=== PATIENT | female | born 1955 | race Caucasian/White ===

== ENCOUNTER → 2016-09-16 | Outpatient (CLI) | payer BC, OTHER ==
[~2016-09-16] MED LIST: ACET-1138 PO; ASPEC81 PO; ASPI81TA28 PO; BIOT1TAB7 PO; CHOL1TAB42 PO; CLB100 PO; CLB200 PO; CYAN100020 PO; DICL1GEL28 TOP; FLUT1INH7 PO; GLC/500 PO; HYDR-5688 PO; LEVO50TA PO; METF1TAB53 PO; MULTTAB58 PO; NXM/40 PO; ONDA8TAB6 PO; PANT40TA PO; RXC5 PO; SERT100T PO; SYMIN160 INH
--- NOTE | 2016-09-16 16:11 | MAMMOGRAPHY REPORT ---
BILATERAL DIGITAL SCREENING MAMMOGRAM TOMOSYNTHESIS WITH CAD: 09/16/2016 CLINICAL HISTORY: Routine screening. Patient has no complaints. TECHNIQUE: Breast tomosynthesis in addition to standard 2D mammography was performed. Current study was also evaluated with a Computer Aided Detection (CAD) system. COMPARISON: Comparison is made to exams dated: 09/15/2015 mammogram, 09/15/2015 mammogram, 09/12/2014 m ammogram, 08/22/2013 mammogram, 08/31/2011 mammogram, and 08/27/2010 mammogram - [facility]. BREAST COMPOSITION: The tissue of both breasts is heterogeneously dense, which may obscure small ma sses. FINDINGS: No suspicious masses, calcifications, or areas of architectural distortion are noted in e ither breast. There has been no significant interval change compared to prior exams. IMPRESSION: ACR BI-RADS CATEGORY 1: NEGATIVE There is no mammographic evidence of malignancy. A 1 year screening mammogram is recommended. The p atient will receive written notification of the results. Approximately 10% of breast cancers are not detected with mammography. A negative mammographic repor t should not delay biopsy if a clinically suggestive mass is present. Sangeeta Wade M.D. /:09/16/2016 15:01:10 Health And Safety Consultant: Seble Flores, [facility] letter sent: Normal 1/2 BI-RADS Code: ACR BI-RADS Category 1: Negative
== END | disposition home or self-care (01) ==
LOC: C.MAMM 12:31
PROVIDERS: ATTEND Internal Medicine
DX: Z12.31 Encounter for screening mammogram for malignant neoplasm of breast (principal)

== ENCOUNTER → 2016-12-23 | Outpatient (CLI) | payer BC, OTHER ==
--- NOTE | 2016-12-23 11:29 | DIAGNOSTIC IMAGING REPORT ---
TWO VIEW CHEST CLINICAL HISTORY: Acute bronchitis. FINDINGS: PA and lateral chest radiographs are compared to study dated 02/23/2016. The PA view is degraded by apical lordotic positioning. The cardiomediastinal silhouette is unremarkable. There is mild atherosclerotic calcification of the thoracic aorta. The lungs and pleural spaces are clear. There is no pneumothorax. The skeletal structures are osteopenic. The bony thorax appears intact. Mild degenerative change is noted throughout the thoracic spine. IMPRESSION: No active disease in the chest. Electronically signed by: Joseph Canas M.D. 12/23/2016 11:26 AM Dictated Date/Time: 12/23/2016 11:25 AM
[2016-12-23 13:16] LABS: BASO % 0.3 %; BASO ABS # 0.02 K/uL (0-0.2); COMPLETE YES; EOS % 4.2 %; HEMATOCRIT 39.1 % (37-47); IG% 0.3 %; LYMPH % 9.8 %; LYMPH ABS # 0.68 K/uL (1.2-3.4); MEAN CELL VOLUME 87.1 fL (80-100); MEAN CORPUSCULAR HEMOGLOBIN 27.8 pg (25-34); MEAN PLATELET VOLUME 10.5 fL (7.4-10.4); MONO % 8.6 %; NEUT % 76.8 %; PLATELET COUNT 149 K/uL (130-400); RED BLOOD COUNT 4.49 M/uL (4.2-5.4); WHITE BLOOD COUNT 6.94 K/uL (4.8-10.8)
[2016-12-23 14:05] LABS: ALT/SGPT 29 U/L (12-78); AST/SGOT 22 U/L (15-37); BLOOD UREA NITROGEN 15 mg/dl (7-18); BUN/CREATININE RATIO 16.5 (10-20); CALCIUM 9.3 mg/dl (8.5-10.1); CARBON DIOXIDE 30 mmol/L (21-32); CHLORIDE 106 mmol/L (98-107); CREATININE 0.92 mg/dl (0.60-1.20); GLUCOSE 89 mg/dl (70-99); POTASSIUM 4.3 mmol/L (3.5-5.1); SODIUM 142 mmol/L (136-145)
[2016-12-23 14:08] LABS: ALB/GLOB RATIO 1.1 (0.9-2); ALKALINE PHOSPHATASE 67 U/L (45-117)
== END | disposition home or self-care (01) ==
LOC: C.RAD1850 11:12
PROVIDERS: ATTEND Physician Assistant Medical
DX: J20.9 Acute bronchitis, unspecified (principal)

== ENCOUNTER → 2017-01-03 | Outpatient (CLI) | payer BC, OTHER ==
[2017-01-03 12:13] LABS: BASO % 0.3 %; BASO ABS # 0.02 K/uL (0-0.2); COMPLETE YES; EOS % 0.9 %; HEMATOCRIT 39.9 % (37-47); LYMPH % 15.2 %; LYMPH ABS # 1.19 K/uL (1.2-3.4); MEAN CELL VOLUME 88.3 fL (80-100); MEAN CORPUSCULAR HEMOGLOBIN 28.1 pg (25-34); MEAN CORPUSCULAR HGB CONC 31.8 g/dl (32-36); MEAN PLATELET VOLUME 10.7 fL (7.4-10.4); MONO % 7.9 %; NEUT % 74.7 %; PLATELET COUNT 193 K/uL (130-400); RED BLOOD COUNT 4.52 M/uL (4.2-5.4); WHITE BLOOD COUNT 7.82 K/uL (4.8-10.8)
[2017-01-03 12:17] LABS: URINE APPEARANCE CLEAR (CLEAR); URINE BILIRUBIN NEG (NEG); URINE COLOR YELLOW; URINE EPITHELIAL CELL AUTO 0-5 /lpf (0-5); URINE NITRITE NEG (NEG); URINE SPECIFIC GRAVITY 1.018 (1.000-1.030); UROBILINOGEN NEG (NEG); ZZUR CULT IF INDIC CLEAN CATCH NO
[2017-01-03 12:23] LABS: MANUAL MICROSCOPIC REQUIRED? NO; REVIEW REQ? NO
[2017-01-03 12:28] LABS: ESTIMATED AVERAGE GLUCOSE 126 mg/dl; HA1C FLAG Normal (Normal)
[2017-01-03 12:54] LABS: ALT/SGPT 26 U/L (12-78); AST/SGOT 15 U/L (15-37); BLOOD UREA NITROGEN 23 mg/dl (7-18); BUN/CREATININE RATIO 25.4 (10-20); C-REACTIVE PROTEIN < 0.29 mg/dl (0-0.29); CARBON DIOXIDE 26 mmol/L (21-32); CHLORIDE 103 mmol/L (98-107); CHOLESTEROL 180 mg/dl (0-200); CREATININE 0.91 mg/dl (0.60-1.20); GLUCOSE 86 mg/dl (70-99); POTASSIUM 3.7 mmol/L (3.5-5.1); SODIUM 139 mmol/L (136-145); TRIGLYCERIDES 215 mg/dl (0-150); VERY LOW DENSITY LIPOPROT CALC 43 mg/dl
[2017-01-03 12:56] LABS: CALCIUM 9.5 mg/dl (8.5-10.1)
[2017-01-03 13:04] LABS: ALB/GLOB RATIO 1.2 (0.9-2); ALKALINE PHOSPHATASE 63 U/L (45-117); CHOLESTEROL/HDL RATIO 3.6; HDL CHOLESTEROL 50 mg/dl; LDL CHOLESTEROL CALCULATED 87 mg/dl
== END | disposition home or self-care (01) ==
LOC: C.LAB1850 09:54
PROVIDERS: ATTEND Internal Medicine
DX: E03.9 Hypothyroidism, unspecified (principal); E11.9 Type 2 diabetes mellitus without complications; N20.0 Calculus of kidney; Z11.59 Encounter for screening for other viral diseases; Z96.652 Presence of left artificial knee joint

== ENCOUNTER → 2017-01-19 | Outpatient (CLI) | payer BC, OTHER ==
--- NOTE | 2017-01-19 10:15 | DIAGNOSTIC IMAGING REPORT ---
CHEST 2 VIEWS ROUTINE HISTORY: Preop. COMPARISON: Chest 12/23/2016. FINDINGS: There are bibasilar linear densities suggesting subsegmental atelectasis. The lungs are otherwise clear. No pleural effusions. No pneumothorax. The heart is normal in size. IMPRESSION: Bibasilar linear densities suggesting subsegmental atelectasis. Otherwise, no acute process within the chest. Electronically signed by: Dc Alexis M.D. 01/19/2017 10:14 AM Dictated Date/Time: 01/19/2017 10:13 AM
== END | disposition home or self-care (01) ==
LOC: C.RAD1850 09:57
PROVIDERS: ATTEND Internal Medicine
DX: Z01.818 Encounter for other preprocedural examination (principal)

== ENCOUNTER 2017-02-10 09:14 | Inpatient (IN) | payer BC, OTHER ==
[2017-01-25 09:13] VITALS: BMI 36.0
--- NOTE | 2017-02-09 08:59 | HISTORY & PHYSICAL EXAMINATION ---
DATE OF ADMISSION: 02/10/2017 CHIEF COMPLAINT: Left knee pain, status post previous total knee arthroplasty. HISTORY OF PRESENT ILLNESS: The patient is a 61-year-old female approximately 4 years status post left total knee arthroplasty. Over the past year, she has noted increased pain and disability. She has been seen and evaluated. X-rays initially showed increased lucency around primarily the tibial component, but somewhat on the femoral component as well. She has had a negative infection workup including a negative sed rate and CRP. She had a bone scan, which showed increased uptake primarily around the tibial component of the involved knee, likely indicative of loosening. She is now scheduled for a left total knee revision. PAST MEDICAL HISTORY: Asthma, chronic bronchitis, type 2 diabetes, hypothyroidism, and obesity. PAST SURGICAL HISTORY: Left knee as above and right knee replacement in 2016. MEDICATIONS: Zoloft 100 mg daily, multivitamin daily, aspirin 81 mg daily, vitamin D3, Synthroid 50 mcg daily, metformin 1000 mg twice daily, celecoxib 100 mg 2 times daily, Biotin 47994 mcg daily, and Protonix 40 mg daily. ALLERGIES: INCLUDE CODEINE. SOCIAL HISTORY AND REVIEW OF SYSTEMS: Noncontributory. PHYSICAL EXAMINATION: GENERAL: Well-nourished and well-developed, obese female who appears her stated age. HEENT: Normocephalic and atraumatic. Extraocular movements intact. Oropharynx is pink and moist. NECK: Supple without adenopathy. LUNGS: Clear to auscultation bilaterally. HEART: Regular rate and rhythm. ABDOMEN: Soft, nontender, and nondistended. EXTREMITIES: The upper extremities are within normal limits. The left knee has a well-healed midline incision from her previous arthroplasty. Her range of motion is approximately 0-110 degrees. X-RAYS: X-rays were reviewed. The tibial component is in a varus alignment. There is obvious lucency about the tibial component. Question of some increased lucency about the femoral component as well. The patellar button appears stable. ASSESSMENT: Aseptic loosening left total knee arthroplasty. PLAN: The above discussed with the patient. Risks versus benefits were discussed. Consent was obtained. We will proceed with left total knee revision arthroplasty upon preoperative workup and medical clearance. The patient's primary care physician is Dr. Wakefield.
[~2017-02-10] VITALS: Ht 157.5 cm; Wt 90.0 kg
[2017-02-10] VITALS (8 sets, daily range): BP systolic 114–161; BP diastolic 72–97; PULSE 64–99; TEMP 36.3–36.8; O2SAT 92–98; Ht 157.5 cm; Wt 90.0 kg
[2017-02-10] MEDS: TRANEXAMIC ACID INJ 1,000 MG in SODIUM CHLORIDE 0.9% 100ML 100 ML IV SCH ×2 (06:30→10:25)
[~2017-02-10 09:14] MED LIST changes: -ACET-1138 PO; +ACETAMINOPHEN 500 MG TAB PO SCH; -ASPEC81 PO; +BUPIVACAINE 0.25% 30 ML VIAL ONE; +BUPIVACAINE 0.5 % 5 MG/1 ML PF 10ML VIAL ONE; +CEFAZOLIN 2000 MG/60 ML D5W 60 ML IV SCH; -CLB200 PO; +CeleBREX 200 MG CAP PO SCH; +DEXAMETHASONE 4 MG TAB PO SCH; -DICL1GEL28 TOP; +FAMOTIDINE 20 MG TAB PO SCH; +GABAPENTIN 300 MG CAP PO SCH; -HYDR-5688 PO; +LACTATED RINGER'S 1000ML 1,000 ML IV SCH; +LACTATED RINGER'S 1000ML 500 ML IV ONE; +LACTATED RINGER'S 1000ML IV SCH; -METF1TAB53 PO; +METOCLOPRAMIDE HCL 10 MG TAB PO SCH; -NXM/40 PO; -ONDA8TAB6 PO; +ROPIVACAINE 5MG/ML 30 ML 150 MG, BUPIVACAINE/EPINEPHR 0.5% MPF 30 ML, KETOROLAC TROMETH... INFIL SCH; -RXC5 PO; -SYMIN160 INH
--- NOTE | 2017-02-10 09:21 | History & Physical Bridge Note ---
H&P Re-Evaluation Bridge Note: I have examined the patient, reviewed the History & Physical and in the interval since the performance of the History & Physical I have noted the following changes of clinical significance: No changes noted
[2017-02-10] MEDS ORDERED: MIDAZOLAM HCL 1 MG/ML 2ML VIAL ONE ×2 (09:49→09:50)
[2017-02-10] MEDS ORDERED: FENTANYL CITRATE INJ 50 MCG/1 ML 2 ML VIAL ONE (09:50)
[2017-02-10] MEDS ORDERED: POVIDONE-IODINE OP SOLN 30 ML BTL ONE (10:45)
[2017-02-10] MEDS ORDERED: ORTHO JOINT ANESTHETIC ONE (10:45)
[2017-02-10] MEDS ORDERED: BACITRACIN 50000 UNIT VIAL ONE (10:46)
[2017-02-10] MEDS ORDERED: SCOPOLAMINE 1.5 MG TDSY TD ONE (11:06)
[2017-02-10] MEDS ORDERED: HYDROmorphone INJ 2 MG/ML SYR/VIAL IV PRN (11:15)
[2017-02-10] MEDS ORDERED: NURSING VERBAL MED ORDER ONE (11:15)
[2017-02-10] MEDS ORDERED: ATROPINE SULFATE 0.1 MG/ML 5ML SYR IV PRN (11:15)
[2017-02-10] MEDS ORDERED: PROMETHAZINE HCL INJ 12.5 MG in SODIUM CHLORIDE 0.9% 50ML 50 ML IV PRN (11:15)
[2017-02-10] MEDS ORDERED: KETOROLAC TROMETHAMINE 30 MG/ML VIAL IV. PRN (11:15)
[2017-02-10] MEDS ORDERED: LABETALOL HCL IV 5 MG/ML 20ML IV PRN (11:15)
[2017-02-10] MEDS ORDERED: ONDANSETRON INJ 2 MG/ML 2 ML VIAL IV PRN ×2 (11:15→14:15)
[2017-02-10] MEDS ORDERED: HYDROmorphone INJ 2 MG/ML SYR/VIAL ONE (12:10)
[2017-02-10] MEDS ORDERED: GLYCOPYRROLATE INJ 0.2 MG/ML VIAL ONE (12:37)
[2017-02-10] MEDS ORDERED: PROPOFOL IV EMULSION 10 MG/ML 20 ML VIAL IV ONE (12:37)
[2017-02-10] MEDS ORDERED: LIDOCAINE HCL 2% 2 ML VIAL (20MG/ML) ONE (12:37)
[2017-02-10] MEDS ORDERED: ROCURONIUM BROMIDE 10 MG/ML 5 ML VIAL ONE (12:37)
[2017-02-10] MEDS ORDERED: NEOSTIGMINE METHYLSULFATE 5 MG/5 ML SYR ONE (12:37)
--- NOTE | 2017-02-10 13:32 | [facility] Post Operative Brief Note ---
Immediate Operative Summary Operative Date Feb 10, 2017. Pre-Operative Diagnosis Aeseptic loosening left total knee arthroplasty Post-Operative Diagnosis Same Procedure(s) Performed Left total knee revision Surgeon Dr Orozco [employer] Surgeon(s) Sander Arechiga PA-C Estimated Blood Loss 60ML Findings Grossly loose tibia Specimens Cultures #1, #2, #3 left knee synovial fluid for gram stain, aerobic and anaerobic A. Explanted hardware left knee Disposition Recovery Room / PACU
[2017-02-10] MEDS ORDERED: MAGNESIUM HYDROXIDE SUSP 30 ML UDC PO PRN (14:15)
[2017-02-10] MEDS ORDERED: METOCLOPRAMIDE HCL INJ 5 MG/ML 2 ML VIAL IV PRN (14:15)
[2017-02-10] MEDS ORDERED: HYDROmorphone INJ 1 MG/ML SYR IV PRN (14:15)
[2017-02-10] MEDS ORDERED: ZOLPIDEM TARTRATE 5 MG TAB PO PRN (14:15)
[2017-02-10] MEDS ORDERED: ALUMINUM/MAGNESIUM/SIMETH (MAALOX MAX) 30 ML UDC PO PRN (14:15)
--- NOTE | 2017-02-10 14:30 | OPERATIVE REPORT ---
DATE OF OPERATION: 02/10/2017 PREOPERATIVE DIAGNOSIS: Aseptic loosening, left total knee. POSTOPERATIVE DIAGNOSIS: Same. PROCEDURE: Left total knee revision. SURGEON: Dr. Orozco. DATA PROCESSING SUPERVISOR: Sander Arechiga PA-C. ANESTHESIA: General. COMPLICATIONS: None. DESCRIPTION OF PROCEDURE: Following induction of adequate general anesthesia, the patient's left leg was prepped and draped in usual sterile manner. Limb was exsanguinated with an Esmarch bandage and tourniquet inflated to 325 mmHg. Previously made incision was reopened. Subcutaneous tissues were sharply dissected. Electrocautery used for hemostasis. Median parapatellar incision was made and 3 sets of cultures were taken and sent for Gram stain and C&S. Next, a complete synovectomy was carried out throughout the knee and first attention was turned to the femur which was undermined using flexible osteotomes and artist chisels. Next, an osteotome was used to remove the tibial poly and using a bone tamp and a mallet, the femoral component was disimpacted with virtually no significant bone loss. There was no evidence of infection. Next, attention was turned to the tibia. It was exposed using retractors and was grossly loose. The tibial component was removed and cement was removed from the canal. Reamings were carried up to a size 11. A size 10 tibial stem was chosen the size to be used. A cleanup cut was made and a size 3 tibial tray was used. A 6 mm offset was necessary to appropriately fit the patient's tibia. Next, attention was turned to the femur and the size 2 femoral component was chosen the size to be used. Reamings were taken up here to a size 12, which gave good endosteal contact. The flexion and extension gap was checked and decision was made to go with the two 5 mm distal augments as well as 12 straight stem. The notch was cut, the femoral trial was assembled and the knee was reduced and a size 19 tibial poly gave best reproduction of soft tissue tension and ligament balancing in flexion and extension. The patella throughout the procedure was protected and was intact. There was no patella prince or patella baja at the end of the procedure. All trials were removed. The knee was thoroughly irrigated and the final components were assembled on the back table. Three packs of cement were mixed and first the tibial component was impacted into position, then the femoral component after removal of all excess cement, trial reduction was carried out with 19 poly and was held in extension until cement hardened. Once the cement hardened, the regular tibial poly was impacted into position. The knee was irrigated, Hemovac drain was placed and the wound was thoroughly irrigated. Once again the joint mix was utilized prior to cementation for pain control and the wound was closed in layers, #1 Vicryl was used to close the extensor mechanism, subcutaneous tissue was closed using 0 Dexon, and skin was closed with warren. Sterile dressing of Silverlon was applied. The patient tolerated the procedure well. I attest to the content of the Intraoperative Record and any orders documented therein. Any exceptions are noted below. ADDENDUM: Mr. Arechiga was essential throughout all portions of the case including positioning , prepping, draping, assistant professor of biology, wound closure and dressing application. WANDY
--- NOTE | 2017-02-10 14:57 | DIAGNOSTIC IMAGING REPORT ---
TWO VIEWS LEFT KNEE CLINICAL HISTORY: Postoperative examination. FINDINGS: AP and crosstable lateral portable views of the left knee are obtained. A left knee arthroplasty is in near anatomic alignment. There are long tibial and femoral stems. There has been undersurface remodeling of the patella. No acute fracture is seen. There are expected postoperative changes around the knee including skin clips, a surgical drain, soft tissue edema, and subcutaneous gas. IMPRESSION: Expected postoperative changes status post left knee arthroplasty. No acute fracture is seen. Electronically signed by: Joseph Canas M.D. 02/10/2017 2:55 PM Dictated Date/Time: 02/10/2017 2:54 PM
--- NOTE | 2017-02-10 15:07 | Anesthesiology Progress Note ---
Anesthesia Post Op Note Date & Time Feb 10, 2017 at 15:08 Vital Signs Pain Intensity: 0 Vital Signs Past 12 Hours Date Time Temp Pulse Resp B/P (MAP) Pulse Ox O2 Delivery O2 Flow Rate FiO2 02/10/17 14:55 36.2 71 13 145/76 98 Nasal Cannula 2 02/10/17 14:26 104 16 143/92 96 Mask 5 02/10/17 14:16 36.2 88 20 155/92 96 Mask 5 02/10/17 09:31 36.8 89 20 161/97 95 Room Air Notes Mental Status: alert / awake / arousable, participated in evaluation Pt Amnestic to Procedure: Yes Nausea / Vomiting: adequately controlled Pain: adequately controlled Airway Patency, RR, SpO2: stable & adequate BP & HR: stable & adequate Hydration State: stable & adequate Anesthetic Complications: no major complications apparent
[2017-02-10] MEDS ORDERED: PHARMACY GLYCEMIC MGMT CONSULT PRN (15:13)
[2017-02-10] MEDS ORDERED: GLUCOSE 40% GEL 15 GM TUBE PO PRN (15:30)
[2017-02-10] MEDS ORDERED: GLUCAGON FOR INJ 1 MG VIAL SQ PRN (15:30)
[2017-02-10] MEDS ORDERED: DEXTROSE 50% 50 ML SYR IV PRN (15:30)
[2017-02-10] MEDS ORDERED: GLUCOSE 10 TABS/TUBE PO PRN (15:30)
--- NOTE | 2017-02-10 16:14 | Pharmacy Progress Note ---
Glycemic Control Intl Consult Date of Service Feb 10, 2017. Scope Glycemic Pharmacist consulted by 02/10/17 on Michael DUPONT for glycemic control and to write orders per [facility] inpatient glycemic control protocol Objective Weight (Kilograms): 90.00 Accuchecks BSG (last 24hrs): Test 02/10/17 09:35 02/10/17 14:25 Bedside Glucose 110 mg/dl (70-90) 137 mg/dl (70-90) Recent Pertinent Medications Outpatient Anti-diabetic Regimen: * Metformin 1 gram PO BID * A1c = 6 % 01/03/17 Risk Factors for Insulin Resistance: * Steroids: Orthomix + Dexamethasone 8 mg PO x 1 pre-op. Dexamethasone 10 mg IV x 1 dose on 02/11 am. * Recent Surgery: POD #0 L TKA revision * Diet: T2DM Assessment & Plan ASSESSMENT: * 61 yr old T2DM female admitted for L TKA revision. BSGs from this morning were within goal range. * Pt is maintained on oral antidiabetic agents as an outpatient - good outpatient control evidenced by A1c of 6% (from 01/03/17) * Will hold oral agents for admission and utilize SQ basal bolus insulin regimen which is the recommended regimen for inpatient glycemic control. * Will initiate weight based insulin dosing for insulin mireya patient and titrate based on BSG trends. * Hyperglycemia may occur due to recent surgery and administration of steroids. * ADA & AACE recommend a goal blood sugar range 140-180 mg/dl for the majority of critically ill & non-critically ill patients. However, more stringent targets may be selected in individual cases. Will utilize more stringent goal of 110-140 mg/dl based on patient age & comorbidities. Additionally, tighter glycemic control is warranted to facilitate wound/infection healing. PLAN FOR INPATIENT GLYCEMIC CONTROL: * Holding outpatient oral diabetes medications * Basal insulin with LANTUS SQ HS per scale * 8 units for BSG is less than 140 mg/dL * 15 units for BSG 140 - 180 mg/dL * 22 units for BSG greater than 180 mg/dL * Correctional Insulin with NOVOLOG per scale ACHS * Goal Range: Low 110 mg/dL - High 140 mg/dL * Correction Factor: 25 mg/dL/unit * Nutritional / Prandial insulin per carb ratio of 1 unit per 9 grams CHO consumed * Overnight checks with coverage at 00 and 04 LOOKING AHEAD FOR DISCHARGE: * Good outpatient control evidenced by A1c of 6% (01/03/17) * Patient will likely be able to resume home regimen of metformin 1 gram PO BID on discharge * Please note that the plan above was derived based on current level of insulin resistance and hospital stress. These recommendations are appropriate for inpatient admission only. Plan of care upon discharge will need to be reassessed to avoid potential outpatient hypo/hyperglycemia. Thank you.
[2017-02-10] MEDS: SODIUM CHLORIDE 0.9% 1000ML 1,000 ML IV SCH (16:23)
[2017-02-10] MEDS: CHECK SCOPOLAMINE PATCH PLACEMENT SCH ×2 (16:23→23:57)
[2017-02-10] MEDS: ACETAMINOPHEN 500 MG TAB PO SCH ×2 (16:55→20:48)
[2017-02-10] MEDS: FERROUS GLUCONATE 324 MG TAB PO SCH (18:06)
[2017-02-10] MEDS: KETOROLAC TROMETHAMINE 30 MG/ML VIAL IV. SCH ×2 (18:06→23:57)
[2017-02-10] MEDS: INSULIN ASPART 100 UNITS/ML 3 ML PEN SC SCH ×2 (18:11→20:53)
[2017-02-10] MEDS: CEFAZOLIN IV 2,000 MG in DEXTROSE 5% 50ML 50 ML IV SCH (20:20)
[2017-02-10] MEDS: DOCUSATE SODIUM 100 MG CAP PO SCH (20:46)
[2017-02-10] MEDS: ASPIRIN 81 MG ECTAB PO SCH (20:47)
[2017-02-10] MEDS: SERTRALINE HCL 100 MG TAB PO SCH (20:47)
[2017-02-10] MEDS ORDERED: LANTUS PER UNIT CHARGE SQ ONE (21:30)
[2017-02-11] MEDS: INSULIN ASPART 100 UNITS/ML 3 ML PEN SC SCH ×6 (00:04→21:12)
[2017-02-11] MEDS: SODIUM CHLORIDE 0.9% 1000ML 1,000 ML IV SCH (01:23)
[2017-02-11 03:23] VITALS: BP 134/79; PULSE 88; TEMP 36.8; O2SAT 96
[2017-02-11] MEDS: CEFAZOLIN IV 2,000 MG in DEXTROSE 5% 50ML 50 ML IV SCH (03:56)
[2017-02-11 05:36] LABS: HEMATOCRIT 33.5 % (37-47); MEAN CELL VOLUME 85.7 fL (80-100); MEAN CORPUSCULAR HEMOGLOBIN 26.9 pg (25-34); MEAN CORPUSCULAR HGB CONC 31.3 g/dl (32-36); MEAN PLATELET VOLUME 10.5 fL (7.4-10.4); PLATELET COUNT 188 K/uL (130-400); RED BLOOD COUNT 3.91 M/uL (4.2-5.4); WHITE BLOOD COUNT 14.89 K/uL (4.8-10.8)
[2017-02-11] MEDS: LEVOTHYROXINE 50 MCG TAB PO SCH (05:36)
[2017-02-11] MEDS: KETOROLAC TROMETHAMINE 30 MG/ML VIAL IV. SCH ×2 (05:36→12:32)
[2017-02-11] MEDS: HYDROCODONE/ACETAMOPHEN 5/325MG TAB PO PRN ×2 (05:42→23:27)
[2017-02-11] MEDS: ACETAMINOPHEN 500 MG TAB PO SCH ×3 (05:43→21:09)
[2017-02-11 06:19] LABS: BUN/CREATININE RATIO 19.3 (10-20); CALCIUM 8.3 mg/dl (8.5-10.1); POTASSIUM 3.7 mmol/L (3.5-5.1)
--- NOTE | 2017-02-11 07:21 | Orthopedic Progress Note ---
Orthopedic Progress Note Date of Service Feb 11, 2017. Subjective Post OP Day: 1 Reports: feeling well Objective N/V intact, dressing C/D/I (Hemovac in place), toes mobile Date Time Temp Pulse Resp B/P (MAP) Pulse Ox O2 Delivery O2 Flow Rate FiO2 02/11/17 03:23 36.8 88 16 134/79 (97) 96 Room Air 02/10/17 22:53 36.3 96 16 114/72 (86) 93 Room Air 02/10/17 19:59 36.6 99 12 150/93 (112) 94 Room Air 02/10/17 19:25 Room Air 02/10/17 18:11 36.6 84 12 148/88 (108) 92 Room Air 02/10/17 17:02 36.5 74 16 147/85 (105) 97 Nasal Cannula 1.5 02/10/17 16:35 36.5 77 16 127/78 (94) 98 Nasal Cannula 2.0 02/10/17 16:00 Nasal Cannula 2.0 02/10/17 15:58 36.5 64 16 144/86 (105) 94 Nasal Cannula 2.0 02/10/17 15:30 Nasal Cannula 2.0 02/10/17 15:30 36.5 84 16 148/83 (104) 97 Nasal Cannula 2.0 02/10/17 15:15 86 16 147/72 97 Nasal Cannula 2 02/10/17 14:55 36.2 71 13 145/76 98 Nasal Cannula 2 02/10/17 14:26 104 16 143/92 96 Mask 5 02/10/17 14:16 36.2 88 20 155/92 96 Mask 5 02/10/17 09:31 36.8 89 20 161/97 95 Room Air Laboratory Results 24 Hours: Test 02/11/17 04:45 Hematocrit 33.5 % Hemoglobin 10.5 g/dL Assessment & Plan Assessment: 61 yo female stable POD #1 s/p revision left TKA Plan: 1. Med management 2. DVT prophylaxis- ASA, SCDs 3. PT/OT 4. D/C planning- home w/ HH
--- NOTE | 2017-02-11 07:23 | Discharge Instructions ---
Discharge Instructions Date of Service Feb 11, 2017. Admission Reason for Admission: Left Knee Mechanical Loosening Of Internal Prosthe Discharge Discharge Diagnosis / Problem: Aseptic loosening left TKA Discharge Goals Goal(s): Decrease discomfort, Improve function Activity Recommendations Activity Limitations: as noted below Weightbearing Status: Left weightbearing (as tolerated) . Instructions / Follow-Up Instructions / Follow-Up ACTIVITY RECOMMENDATIONS: SELF CARE INSTRUCTIONS AFTER TOTAL KNEE REPLACEMENT A. You may need to continue a physical therapy program after discharge from the hospital. There are several options available to you. Your doctor will assist you in selecting the best one for you. 1. An out-patient facility 2 to 3 times a week for therapy or home therapy. 2. Continue working on all exercises taught to you in the hospital. Your goals should be to increase bending of your knee to 90 degrees and beyond and to fully straighten your knee. B. You may progress at your own pace from walking with a walker or crutches to a cane; then to no assistive devices. C. Make walking a part of your daily routine. Be up as much as comfortable with rest periods throughout the day. Rest with leg elevation is very important. Use the ice wrap frequently for the first 3-4 weeks. D. There are no restrictions on activities. You may ride in a car, shop, participate in seed expert and all social activities. E. Wear the long elastic stockings (JOSE hose) 20 hours a day for 2 weeks after surgery. They can be removed several times a day for laundering and for a bath. F. You may shower, no tub baths until cleared by your doctor. SPECIAL CARE INSTRUCTIONS: VERY IMPORTANT TO READ AND REVIEW A. There are a few signs you need to watch for after you are home. Call [facility] [place] if you notice any of the followin. Increased severe knee pain. Some pain is expected especially when you exercise. 2. Increased swelling in your leg or knee; pain or swelling of the calf muscle in either lower leg. 3. Any fluid drainage from the incision. 4. Shortness of breath or chest pain. B. Please call [facility] at if you have any concerns or questions about your operation or recovery. The doctor or his nurse will return your call promptly. C. You must take antibiotics before dental work, bladder, bowel or other surgery. Your doctor will provide you with a permanent care to carry describing this precaution. IMPORTANT: * REMEMBER TO TAKE ASPIRIN, 81 MG, TWICE DAILY FOR 4 WEEKS UNLESS OTHERWISE DIRECTED. THIS IS YOUR BLOOD THINNER. * HIGH RISK PATIENTS MAY BE PRESCRIBED A STRONGER BLOOD THINNER. THIS WILL BE PROVIDED AT DISCHARGE. * CALL IF INCREASED PAIN, REDNESS, DRAINAGE OR FEVER GREATER THAT 101. * WEAR JOSE HOSE 20 HOURS PER DAY FOR 2 WEEKS. Silverlon- This is a large adhesive bandage that contains silver ions. This helps your incision heal by fighting off bacteria and protecting it from the outside environment. You are permitted to shower with this dressing. This will remain on your incision for 7 days and then should be removed. Some visible blood or drainage through the dressing window is normal. If there is significant drainage or leaking noted before the 7 days notify your doctor's office immediately. Once removed, keep incision clean and dry. If there is any drainage or redness noted, please call your surgeon. FOLLOW UP VISIT: If appointment is not already scheduled: Please call [facility] [place] to make a follow-up appointment for 2 weeks after your surgery at . Current Hospital Diet Patient's current hospital diet: Diabetes Type 2 Diet Discharge Diet Recommended Diet: Diabetes Type 2 Diet Procedures Procedures Performed: Left total knee revision Pending Studies Studies pending at discharge: no Laboratory Results Hemoglobin A1c Test 01/03/17 10:00 Range/Units Estimated Average Glucose 126 mg/dl Hemoglobin A1c 6.0 H 4.5-5.6 % Lipid Panel Test 01/03/17 10:00 Range/Units Triglycerides Level 215 H 0-150 mg/dl Cholesterol Level 180 0-200 mg/dl HDL Cholesterol 50 mg/dl Cholesterol/HDL Ratio 3.6 LDL Cholesterol, Calculated 87 mg/dl Medical Emergencies . Who to Call and When: Medical Emergencies: If at any time you feel your situation is an emergency, please call 911 immediately. . Non-Emergent Contact Non-Emergency issues call your: Surgeon Call Non-Emergent contact if: temperature is above 101.5, your pain is not controlled, wound has increased drainage, wound has increased redness . "Provider Documentation" section prepared by Sander Arechiga PA-C. . VTE Core Measure Inpt VTE Proph given/why not?: Other Anticoagulation (ASA 81mg bid), T.E.D. Stockings, SCD's [place] Drug Monitoring Program Search Results: patient reviewed within database, no issues identified
[2017-02-11] MEDS: CHECK SCOPOLAMINE PATCH PLACEMENT SCH ×3 (07:28→23:21)
[2017-02-11] MEDS ORDERED: DEXAMETHASONE INJ 10 MG in SYRINGE 0 ML IV SCH (07:30)
[2017-02-11 07:46] VITALS: BP 127/72; PULSE 91; TEMP 36.6; O2SAT 94
[2017-02-11] MEDS ORDERED: LANTUS PER UNIT CHARGE SQ ONE (08:00)
[2017-02-11] MEDS: ASPIRIN 81 MG ECTAB PO SCH ×2 (08:47→21:08)
[2017-02-11] MEDS: PANTOprazole SOD 40 MG TAB PO SCH (08:47)
[2017-02-11] MEDS: DOCUSATE SODIUM 100 MG CAP PO SCH ×2 (08:47→21:08)
[2017-02-11] MEDS: CYANOCOBALAMIN 500 MCG TAB (VIT B-12) PO SCH (08:47)
[2017-02-11] MEDS: MULTIVITAMIN TAB PO SCH (08:47)
[2017-02-11] MEDS: FERROUS GLUCONATE 324 MG TAB PO SCH ×3 (08:48→19:00)
[2017-02-11] MEDS: CHOLECALCIFEROL 1000 INTER.UNIT TAB PO SCH (08:48)
--- NOTE | 2017-02-11 10:46 | Pharmacy Progress Note ---
Glycemic Control: Progress Nt Date of Service Feb 11, 2017. Scope Glycemic Pharmacist consulted by Jacob Arechiga PA-C on 02/10/17 for glycemic control and to write orders per [facility] inpatient glycemic control protocol. Objective Accuchecks BSG (last 24hrs): Test 02/10/17 14:25 02/10/17 17:05 02/10/17 20:29 02/10/17 23:54 Bedside Glucose 137 mg/dl (70-90) 152 mg/dl (70-90) 173 mg/dl (70-90) 166 mg/dl (70-90) Test 02/11/17 03:59 02/11/17 04:45 02/11/17 07:53 02/11/17 08:15 Bedside Glucose 125 mg/dl (70-90) 161 mg/dl (70-90) 170 mg/dl (70-90) Random Glucose 128 mg/dl (70-99) Laboratory Data (last 24hrs) Test 02/11/17 04:45 Anion Gap 9.0 mmol/L BUN/Creatinine Ratio 19.3 Blood Urea Nitrogen 19 mg/dl Creatinine 1.00 mg/dl Potassium Level 3.7 mmol/L Sodium Level 144 mmol/L White Blood Count 14.89 K/uL Recent Pertinent Medications Outpatient Anti-diabetic Regimen: * Metformin 1gm po BID * A1c = 6 % from 01/03/17 Risk Factors for Insulin Resistance: * Steroids: Decadron 8mg po preop, Decadron 10mg IV x 1 this AM * Recent Surgery: POD 1, L TKA revision * Diet: DM2 Assessment & Plan ASSESSMENT: * ADA & AACE recommend a goal blood sugar range 140-180 mg/dl for the majority of critically ill & non-critically ill patients. However, more stringent targets may be selected in individual cases. * BSGs have been ranging 125 - 170 mg/dl during the past 24 hours. * Last dose of DXM was this morning. Ordered Lantus x 1 this morning to cover long-acting effects of DXM. I do not anticipate any additional Lantus will be necessary unless steroid is continued. * Will restart Metformin tomorrow morning. At that time, will discontinue Novolog CR, however, continue the CF to resolve hyperglycemic episodes. PLAN FOR INPATIENT GLYCEMIC CONTROL: * Add Lantus 15 units SQ x 1 * Novolog ACHS * Continue correction factor 25 mg/dl/unit * Continue carb ratio 1 unit per 9 grams CHO consumed; discontinue after today * Continue goal range Low 110 mg/dL - High 140 mg/dL RECOMMENDATIONS FOR DISCHARGE: * A1c = 6% - BSGs are well controlled on current regimen of Metformin therapy. Restart upon discharge. * Please note that the plan above was derived based on current level of insulin resistance and hospital stress. These recommendations are appropriate for inpatient admission only. Plan of care upon discharge will need to be reassessed to avoid potential outpatient hypo/hyperglycemia. Thank you.
[2017-02-11 10:54] VITALS: BP 151/77; PULSE 93; TEMP 36.8; O2SAT 92
[2017-02-11 15:00] VITALS: BP 134/77; PULSE 92; TEMP 36.8; O2SAT 94
[2017-02-11] MEDS: SERTRALINE HCL 100 MG TAB PO SCH (21:07)
[2017-02-11] MEDS: CeleBREX 200 MG CAP PO SCH (21:08)
[2017-02-11 22:33] VITALS: BP 117/66; PULSE 78; TEMP 36.5; O2SAT 96
[2017-02-12] MEDS: LEVOTHYROXINE 50 MCG TAB PO SCH (05:24)
[2017-02-12] MEDS: ACETAMINOPHEN 500 MG TAB PO SCH (05:25)
[2017-02-12 06:46] VITALS: BP 129/79; PULSE 82; TEMP 36.7; O2SAT 96
[2017-02-12] MEDS: CHECK SCOPOLAMINE PATCH PLACEMENT SCH (07:32)
[2017-02-12] MEDS: FERROUS GLUCONATE 324 MG TAB PO SCH ×2 (08:00→12:30)
--- NOTE | 2017-02-12 08:00 | Orthopedic Progress Note ---
Orthopedic Progress Note Date of Service Feb 12, 2017. Subjective Post OP Day: 2 Reports: feeling well, pain controlled w PO medications, Denies: complaints, chest pain, SOB, nausea / vomiting, light headedness, calf pain Additional Notes: Gram stain/ cxs neg. Objective calves soft nontender, N/V intact, capillary refill less than 2 sec., dressing C /D/I, A&O x3, toes mobile silverlon cracked Date Time Temp Pulse Resp B/P (MAP) Pulse Ox O2 Delivery O2 Flow Rate FiO2 02/12/17 06:46 36.7 82 16 129/79 (96) 96 Room Air 02/11/17 23:15 Room Air 02/11/17 22:33 36.5 78 18 117/66 (83) 96 Room Air 02/11/17 15:15 Room Air 02/11/17 15:00 36.8 92 16 134/77 (96) 94 Room Air 02/11/17 10:54 36.8 93 16 151/77 (101) 92 Room Air Assessment & Plan Assessment: 61 yo female stable POD #2 s/p revision left TKA Plan: 1. Med management 2. DVT prophylaxis- ASA, SCDs 3. PT/OT 4. D/C planning- home w/ HH today.
[2017-02-12] MEDS: CeleBREX 200 MG CAP PO SCH (08:01)
[2017-02-12] MEDS: ASPIRIN 81 MG ECTAB PO SCH (08:02)
[2017-02-12] MEDS: DOCUSATE SODIUM 100 MG CAP PO SCH (08:02)
[2017-02-12] MEDS: MULTIVITAMIN TAB PO SCH (08:03)
[2017-02-12] MEDS: PANTOprazole SOD 40 MG TAB PO SCH (08:03)
[2017-02-12] MEDS: CHOLECALCIFEROL 1000 INTER.UNIT TAB PO SCH (08:03)
[2017-02-12] MEDS: CYANOCOBALAMIN 500 MCG TAB (VIT B-12) PO SCH (08:04)
[2017-02-12] MEDS ORDERED: CLB200 PO (08:09)
[2017-02-12] MEDS ORDERED: ONDA8TAB6 PO (08:09)
[2017-02-12] MEDS ORDERED: ACET-1138 PO (08:09)
[2017-02-12] MEDS ORDERED: ASPEC81 PO (08:09)
[2017-02-12] MEDS ORDERED: HYDR-5688 PO (08:09)
[2017-02-12] MEDS: INSULIN ASPART 100 UNITS/ML 3 ML PEN SC SCH ×2 (08:10→12:32)
[2017-02-12] MEDS ORDERED: METFORMIN HCL 500 MG TAB PO SCH (08:30)
--- NOTE | 2017-02-12 10:22 | Pharmacy Progress Note ---
Glycemic Control: Progress Nt Date of Service Feb 12, 2017. Scope Glycemic Pharmacist consulted by Leandro GTZ on 02/10/17 for glycemic control and to write orders per [facility] inpatient glycemic control protocol. Objective Accuchecks BSG (last 24hrs): Test 02/11/17 11:57 02/11/17 16:52 02/11/17 20:32 02/12/17 06:46 Bedside Glucose 164 mg/dl (70-90) 174 mg/dl (70-90) 149 mg/dl (70-90) 105 mg/dl (70-90) HbA1c: 6% 01/03/17 Recent Pertinent Medications Outpatient Anti-diabetic Regimen: * Metformin 1gm PO BID * A1c = 6 % 01/03/17 The patient is currently receiving: * Basal insulin: Lantus 15 units SQ x 1 yesterday AM (02/11), no further doses ordered * Correctional Insulin: Novolog Correction per scale ACHS Goal Range: Low 110 mg/dL - High 140 mg/dL Correction Factor: 25 mg/dL/unit * Prandial insulin: Per carb ratio of 1 unit per -- grams CHO consumed * Oral Agents: Metformin 1gm PO BID restarted this AM Risk Factors for Insulin Resistance: * Steroids: Dexamethasone 10mg IV x 1 yesterday AM @ 0730; no further doses ordered * Recent Surgery: POD # 2 s/p L TKA revision * Diet: ordered T2DM diet and tolerating well per CHO counts Assessment & Plan ASSESSMENT: 02/12/17 * Type 2 diabetic well controlled with metformin monotherapy prior to admission (A1c 6%) - admitted for L TKA revision * Metformin was placed on hold initially however will resume home dose this AM, renal fxn adequate and pt tolerating diet * Last dose of Dexamethasone IV given 02/11 AM - would expect insulin resistance to persist 24+ hour after this dose, some patients experience insulin resistance for more than this. * Fasting BSG 105 this AM, likely influenced by Lantus 15 units given yesterday AM, however will not give basal insulin today in anticipation of improved glycemic control as steroid effect dissipates. Metformin is now on board and will help control fasting BSGs. * Will continue a smaller prandial dose w/ breakfast today, however will likely d/c prandial insulin all together later today if post-prandial BSG pattern suggests this is possible PLAN FOR INPATIENT GLYCEMIC CONTROL: * Continue Metformin 1gm PO BID (home dose) * No basal insulin at this time * Continuing correction factor of 25 mg/dl/unit * Changing carb ratio to 1 unit per 15 grams CHO consumed * Continuing goal range of Low 110 mg/dL - High 140 mg/dL RECOMMENDATIONS FOR DISCHARGE: * Resume home dose of Metformin 1gm PO BID * Please note that the plan above was derived based on current level of insulin resistance and hospital stress. These recommendations are appropriate for inpatient admission only. Plan of care upon discharge will need to be reassessed to avoid potential outpatient hypo/hyperglycemia. Thank you.
[2017-02-12 11:46] VITALS: BP 129/79; PULSE 82; TEMP 36.7; O2SAT 96
--- NOTE | 2017-02-23 08:37 | DISCHARGE SUMMARY ---
CHIEF COMPLAINT: Aseptic loosening, left total knee arthroplasty. Please see complete history and physical examination. HOSPITAL COURSE: The patient underwent left total knee revision arthroplasty without complication. She tolerated the procedure well and was discharged to recovery room in stable condition. Her postoperative course was relatively uneventful. Her postoperative pain was reasonably well controlled with a combination of spinal anesthesia, adductor canal block, intraoperative joint injection, IV, and oral pain medications. She was started on aspirin for DVT prophylaxis. She also utilized JOSE stockings and SCDs for additional prophylaxis. Her H&H was stable and did not require transfusion. Her surgical drain was discontinued on postoperative day 2, her surgical dressing will remain in place for approximately 7 days postoperative. She tolerated postoperative physical therapy reasonably well where she was bending her knee and ambulating appropriately. She was discharged home on postoperative day 2. She will continue her physical therapy at home. She will continue her aspirin for DVT prophylaxis and follow up in our office in approximately 10-14 days for initial postop evaluation.
== END 2017-02-12 13:11 | disposition home health service (06) | DRG 489 ==
LOC: C.ACU 09:14 → C.3E 09:35 → ENRESERV 15:12
PROC: 0SWD04Z Revision of Internal Fixation Device in Left Knee Joint, Open Approach (ICD-10-PCS; principal; 2017-02-10 11:30)
PROC: 0SBD0ZZ Excision of Left Knee Joint, Open Approach (ICD-10-PCS; principal; 2017-02-10 11:30)
DX: T84.033A Mechanical loosening of internal left knee prosthetic joint, initial encounter (principal); J45.909 Unspecified asthma, uncomplicated; E11.9 Type 2 diabetes mellitus without complications; E03.9 Hypothyroidism, unspecified; E66.9 Obesity, unspecified; Z96.653 Presence of artificial knee joint, bilateral; Y82.8 Other medical devices associated with adverse incidents

== ENCOUNTER → 2017-07-21 | Outpatient (CLI) | payer BC, OTHER ==
[~2017-07-21] MED LIST changes: +ACET-1138 PO; -ACETAMINOPHEN 500 MG TAB PO SCH; +ASPEC81 PO; -ASPI81TA28 PO; -BUPIVACAINE 0.25% 30 ML VIAL ONE; -BUPIVACAINE 0.5 % 5 MG/1 ML PF 10ML VIAL ONE; -CEFAZOLIN 2000 MG/60 ML D5W 60 ML IV SCH; -CLB100 PO; +CLB200 PO; -CeleBREX 200 MG CAP PO SCH; -DEXAMETHASONE 4 MG TAB PO SCH; -FAMOTIDINE 20 MG TAB PO SCH; -GABAPENTIN 300 MG CAP PO SCH; +HYDR-5688 PO; -LACTATED RINGER'S 1000ML 1,000 ML IV SCH; -LACTATED RINGER'S 1000ML 500 ML IV ONE; -LACTATED RINGER'S 1000ML IV SCH; -METOCLOPRAMIDE HCL 10 MG TAB PO SCH; +ONDA8TAB6 PO; -ROPIVACAINE 5MG/ML 30 ML 150 MG, BUPIVACAINE/EPINEPHR 0.5% MPF 30 ML, KETOROLAC TROMETH... INFIL SCH
--- NOTE | 2017-07-21 17:06 | DIAGNOSTIC IMAGING REPORT ---
SI JOINTS WITHOUT HISTORY: 61 years-old Female M51.36 Disc degeneration, [id number] [id number] HLA-B27 chronic low back pain with radiation into the lower extremities. Numbness and tingling of the feet. Possible sacroiliitis. COMPARISON: CT abdomen and pelvis 10/19/2014 TECHNIQUE: Multiplanar multisequence MRI of the bilateral sacroiliac joints were obtained without the use of IV contrast. FINDINGS: The large [id number] pedicurist localizer images demonstrate no gross abnormality of the imaged abdomen or pelvis. Patient obesity is noted. Moderate discogenic degenerative changes are noted at L4-L5 and L5-S1 along with facet arthropathy. Prior hysterectomy. There is mild joint space narrowing with chondral thinning and marginal spurring involving the bilateral SI joints. No focal bone marrow edema, fracture or erosive changes to suggest sacroiliitis. No focal abnormality identified involving the paraspinal soft tissues. At least mild degenerative changes involve the bilateral femoral acetabular joints. There is normal signal within the musculature about the pelvis. IMPRESSION: 1. Mild degenerative changes of the bilateral sacroiliac joints without focal bone marrow edema, fracture or erosive changes to suggest sacroiliitis. 2. Moderate intervertebral disc space narrowing with facet arthropathy at L4-L5 and L5-S1. 3. Prior hysterectomy. The above report was generated using voice recognition software. It may contain grammatical, syntax or spelling errors. Electronically signed by: Gilmar Yee M.D. 07/21/2017 5:05 PM Dictated Date/Time: 07/21/2017 4:57 PM
== END | disposition home or self-care (01) ==
LOC: C.MRI 14:11
PROVIDERS: ATTEND Internal Medicine Rheumatology
DX: M46.1 Sacroiliitis, not elsewhere classified (principal); M51.37 Other intervertebral disc degeneration, lumbosacral region; M89.8X8 Other specified disorders of bone, other site; Z90.710 Acquired absence of both cervix and uterus; M79.641 Pain in right hand; M79.642 Pain in left hand; Z15.89 Genetic susceptibility to other disease

== ENCOUNTER → 2017-09-19 | Outpatient (CLI) | payer OTHER ==
[~2017-09-19] MED LIST changes: -ACET-1138 PO; +ADVIN25/60 INH; +ASPCH81X PO; -ASPEC81 PO; -BIOT1TAB7 PO; -FLUT1INH7 PO; -HYDR-5688 PO; +METH1TAB81 PO; -ONDA8TAB6 PO
--- NOTE | 2017-09-20 07:52 | MAMMOGRAPHY REPORT ---
BILATERAL DIGITAL SCREENING MAMMOGRAM TOMOSYNTHESIS WITH CAD: 09/19/2017 CLINICAL HISTORY: Routine screening. Patient has no complaints. TECHNIQUE: Breast tomosynthesis in addition to standard 2D mammography was performed. Current study was also evaluated with a Computer Aided Detection (CAD) system. COMPARISON: Comparison is made to exams dated: 09/16/2016 mammogram, 09/15/2015 mammogram, 09/15/2015 m ammogram, 09/12/2014 mammogram, 08/22/2013 mammogram, and 08/31/2011 mammogram - [facility]. BREAST COMPOSITION: There are scattered areas of fibroglandular density in both breasts. FINDINGS: The parenchymal pattern is unchanged. No developing mass, architectural distortion or clus ter of suspicious microcalcifications is seen in either breast. IMPRESSION: ACR BI-RADS CATEGORY 2: BENIGN There is no mammographic evidence of malignancy. A 1 year screening mammogram is recommended. The pa tient will receive written notification of the results. Approximately 10% of breast cancers are not detected with mammography. A negative mammographic report should not delay biopsy if a clinically suggestive mass is present. Cassidy Izquierdo M.D. ay/:09/19/2017 14:57:12 Timber Watchman: Felicia RYDER(Meli)(Jayden)(BD), [facility] letter sent: Normal 1/2 BI-RADS Code: ACR BI-RADS Category 2: Benign
== END | disposition home or self-care (01) ==
LOC: C.MAMM 12:47
PROVIDERS: ATTEND Internal Medicine
DX: Z12.31 Encounter for screening mammogram for malignant neoplasm of breast (principal)

== ENCOUNTER → 2017-10-05 | Day surgery (SDC) | payer OTHER ==
[2017-08-16 11:25] VITALS: Ht 157.5 cm; Wt 90.0 kg
[~2017-10-05] VITALS: Ht 157.5 cm; Wt 90.0 kg
[~2017-10-05] MED LIST changes: +LIDOCAINE HCL 2% 2 ML VIAL (20MG/ML) ONE; +MIDAZOLAM HCL 1 MG/ML 2ML VIAL ONE; +ONDANSETRON INJ 2 MG/ML 2 ML VIAL ONE; +PROPOFOL IV EMULSION 10 MG/ML 20 ML VIAL IV ONE
--- NOTE | 2017-10-05 09:59 | Endo History and Physical ---
History & Physical Date of Service: Oct 05, 2017. Chief Complaint: diarrhea,bright red blood per rectum Referring Physician: Ledy Smith PA-C History of Present Illness 61 yo CF who presents for colonoscopy secondary to diarrhea and bright red blood per rectum. Past Surgical History Hx Cardiac Surgery: No Hx Internal Defibrillator: No Hx Pacemaker: No Hx Abdominal Surgery: Yes (HYSTERECTOMY) Hx of Implantable Prosthesis: No Hx Post-Op Nausea and Vomiting: No Hx Cancer Surgery: No Hx Thoracic Surgery: No Hx Orthopedic: Yes (RT RCR, RT KNEE ARTHROSCOPY, BILATERAL TKA, LEFT TKA REVISION) Hx Urinary Tract Surgery: No Family History IBD Social History Smoking Status: Never Smoker Hx Substance Use: No Hx Alcohol Use: No Allergies Coded Allergies: Cat Dander (Verified Allergy, Unknown, TIGHTNESS IN CHEST, 10/05/17) PER PCP RECORDS Codeine (Verified Allergy, Unknown, TACHYCARDIA AND RASH, 08/16/17) Dog Dander (Verified Allergy, Unknown, UNKNOWN REACTION, 10/05/17) PER PCP RECORDS Dust Mite Extract (Verified Allergy, Unknown, TIGHTNESS IN CHEST, 10/05/17) PER PCP RECORDS Oxycodone (Verified Allergy, Unknown, HEART RACING/HOT FEELING, 10/05/17) Telithromycin (Verified Allergy, Unknown, UNKNOWN, 08/16/17) INFO FROM [facility] [place] Current Medications Reported Home Medications Medications Dose Route/Sig Max Daily Dose Days Date Category Dose Instructions Medrol (Methylprednisolone) 4 Mg Tab 4 Mg PO DIRECTED 08/16/17 Reported TAPERED DOSE FOR SI JOINT INFLAMMATION Advair Diskus 250/50 60 Dose (Fluticasone Prop/Salmeterol) 1 Ea Aerp 1 Puff INH BID 08/16/17 Reported Aspirin Chewable (Aspirin) 81 Mg Chew 81 Mg PO QAM 08/16/17 Reported Celebrex (Celecoxib) 200 Mg Cap 200 Mg PO BID 30 02/12/17 Rx Vitamin B12 (Cyanocobalamin) 1,000 Mcg Tab 1 Tab PO QAM 01/25/17 Reported Protonix (Pantoprazole Sodium) 40 Mg Tab 40 Mg PO QAM 01/25/17 Reported Glucophage (Metformin Hcl) 500 Mg Tab 2 Tab PO HS 01/25/17 Reported Vitamin D (Cholecalciferol) 5,000 Unit Tab 5,000 Interunit PO QAM 02/23/16 Reported Synthroid (Levothyroxine Sodium) 50 Mcg Tab 50 Mcg PO QAM 03/09/13 Reported Zoloft (Sertraline Hcl) 100 Mg Tab 100 Mg PO QPM 03/09/13 Reported Multivitamin (Multiple Vitamin) 1 Tab Tab 1 Tab PO QAM 03/09/13 Reported Vital Signs Weight (Kilograms): 90 Height (Feet): 5 Height (Inches): 2 Date Time Temp Pulse Resp B/P (MAP) Pulse Ox O2 Delivery O2 Flow Rate FiO2 10/05/17 09:34 36.5 93 20 150/91 (110) 96 Room Air Physical Exam General Appearance: WD/WN, no apparent distress Respiratory/Chest: Auscultation: breath sounds normal Cardiovascular: Heart Auscultation: RRR Abdomen: Bowel Sounds: normal Inspection & Palpation: soft, non-distended, no tenderness, guarding & rebound Assessment and Plan Assessment: 61 yo CF who presents for colonoscopy secondary to diarrhea and bright red blood per rectum. Plan: Proceed with colonoscopy.
--- NOTE | 2017-10-05 10:25 | GI REPORT ---
Procedure Date: 10/05/2017 9:47 AM Procedure: Colonoscopy Indications: Chronic diarrhea, Rectal bleeding Medicines: Monitored Anesthesia Care Complications: No immediate complications. Estimated Blood Loss: Estimated blood loss: none. Procedure: Pre-Anesthesia Assessment: - Prior to the procedure, a History and Physical was performed, and patient medications and allergies were reviewed. The patient's tolerance of previous anesthesia was also reviewed. The risks and benefits of the procedure and the sedation options and risks were discussed with the patient. All questions were answered, and informed consent was obtained. Prior Anticoagulants: The patient has taken aspirin, last dose was 3 days prior to procedure. ASA Grade Assessment: II - A patient with mild systemic disease. After reviewing the risks and benefits, the patient was deemed in satisfactory condition to undergo the procedure. After I obtained informed consent, the scope was passed under direct vision. Throughout the procedure, the patient's blood pressure, pulse, and oxygen saturations were monitored continuously. The Scope was introduced through the anus and advanced to the terminal ileum. The colonoscopy was performed without difficulty. The patient tolerated the procedure well. The quality of the bowel preparation was good. The terminal ileum, ileocecal valve, appendiceal orifice, and rectum were photographed. Findings: The perianal and digital rectal examinations were normal. Multiple small-mouthed diverticula were found in the sigmoid colon. Non-bleeding internal hemorrhoids were found during retroflexion. The hemorrhoids were small. Several random biopsies were obtained with cold forceps for histology in the entire colon. Fluid aspiration for stool studies was performed in the entire colon. Impression: - Diverticulosis in the sigmoid colon. - Non-bleeding internal hemorrhoids. - Several random biopsies were obtained in the entire colon. - Fluid aspiration was performed. Recommendation: - Resume previous diet. - Continue present medications. - Repeat colonoscopy for surveillance based on pathology results. - Return to primary care physician as previously scheduled. Tomas Bay DO 10/05/2017 10:23:56 AM This report has been signed electronically. Note Initiated On: 10/05/2017 9:47 AM I attest to the content of the Intraoperative Record and orders documented therein, exceptions below
--- NOTE | 2017-10-05 10:27 | Anesthesiology Progress Note ---
Anesthesia Post Op Note Date & Time Oct 05, 2017 at 10:26 Vital Signs Pain Intensity: 0 Vital Signs Past 12 Hours Date Time Temp Pulse Resp B/P (MAP) Pulse Ox O2 Delivery O2 Flow Rate FiO2 10/05/17 09:34 36.5 93 20 150/91 (110) 96 Room Air Notes Mental Status: alert / awake / arousable, participated in evaluation Pt Amnestic to Procedure: Yes Nausea / Vomiting: adequately controlled Pain: adequately controlled Airway Patency, RR, SpO2: stable & adequate BP & HR: stable & adequate Hydration State: stable & adequate Anesthetic Complications: no major complications apparent
--- NOTE | 2017-10-05 10:27 | Discharge Instructions ---
Endoscopy Patient Instructions Date / Procedure(s) Performed Oct 05, 2017. Colonoscopy Allergy Information Coded Allergies: Cat Dander (Verified Allergy, Unknown, TIGHTNESS IN CHEST, 10/05/17) PER PCP RECORDS Codeine (Verified Allergy, Unknown, TACHYCARDIA AND RASH, 08/16/17) Dog Dander (Verified Allergy, Unknown, UNKNOWN REACTION, 10/05/17) PER PCP RECORDS Dust Mite Extract (Verified Allergy, Unknown, TIGHTNESS IN CHEST, 10/05/17) PER PCP RECORDS Oxycodone (Verified Allergy, Unknown, HEART RACING/HOT FEELING, 10/05/17) Telithromycin (Verified Allergy, Unknown, UNKNOWN, 08/16/17) INFO FROM [facility] [place] Discharge Date / Findings Oct 05, 2017. Diverticulosis Internal hemorrhoids Random colon biopsies Stool aspirate collected Medication Instructions Stopped Medication(s): stopped ASA and Metformin Tuesday OK to resume all medications today as prescribed Reported Home Medications Medications Dose Route/Sig Max Daily Dose Days Date Category Dose Instructions Medrol (Methylprednisolone) 4 Mg Tab 4 Mg PO DIRECTED 08/16/17 Reported TAPERED DOSE FOR SI JOINT INFLAMMATION Advair Diskus 250/50 60 Dose (Fluticasone Prop/Salmeterol) 1 Ea Aerp 1 Puff INH BID 08/16/17 Reported Aspirin Chewable (Aspirin) 81 Mg Chew 81 Mg PO QAM 08/16/17 Reported Celebrex (Celecoxib) 200 Mg Cap 200 Mg PO BID 30 02/12/17 Rx Vitamin B12 (Cyanocobalamin) 1,000 Mcg Tab 1 Tab PO QAM 01/25/17 Reported Protonix (Pantoprazole Sodium) 40 Mg Tab 40 Mg PO QAM 01/25/17 Reported Glucophage (Metformin Hcl) 500 Mg Tab 2 Tab PO HS 01/25/17 Reported Vitamin D (Cholecalciferol) 5,000 Unit Tab 5,000 Interunit PO QAM 02/23/16 Reported Synthroid (Levothyroxine Sodium) 50 Mcg Tab 50 Mcg PO QAM 03/09/13 Reported Zoloft (Sertraline Hcl) 100 Mg Tab 100 Mg PO QPM 03/09/13 Reported Multivitamin (Multiple Vitamin) 1 Tab Tab 1 Tab PO QAM 03/09/13 Reported Provider Instructions Activity Restrictions - No exercising or heavy lifting for 24 hours. - Do not drink alcohol the day of the procedure. - Do not drive a car or operate machinery until the day after the procedure. - Do not make any important decisions or sign important papers in 24 hours after the procedure. Following Day: - Return to full activity which may include returning to work/school. Diet Start your diet with liquids and light foods (jello, soup, juice, toast). Then eat your usual diet if not nauseated. Treatment For Common After Affects For mild abdominal pain, bloating, or excessive gas: - Rest - Eat lightly - Lie on right side Follow-Up Information Follow-up with Ledy Smith PA-C as scheduled Anesthesia Information What You Should Know You have had a procedure that required some medicine to reduce anxiety and discomfort. This treatment is called moderate sedation. After receiving the treatment, you may be sleepy, but you will be able to breathe on your own. The effects of the treatment may last for several hours. Follow these instructions along with Activity/Diet recommendations noted above: * Do NOT do anything where dizziness or clumsiness would be dangerous. * Rest quietly at home today, then you can be up and about tomorrow. * Have a responsible person stay with you the rest of today. * You may have had an I.V. today. If so, you may take the dressing off later today. Recommendations Call your doctor if: * Trouble breathing * Continuous vomiting for more than 24 hours * Temperature above 101 degrees * Severe abdominal pain or bloating * Pain not relieved by pain medicine ordered * There is increased drainage or redness from any incision * A large amount of rectal bleeding greater than 2-3 tablespoons. (If you had a polyp/s removed or have hemorrhoids, a small amount of blood - from the rectum is to be expected.) * You have any unanswered questions or concerns. IN THE EVENT OF A SERIOUS EMERGENCY, GO TO THE NEAREST EMERGENCY ROOM Your discharge instructions were prepared by provider Tomas Bay. Patient Instructions Signature Page Candace Gar Patient (or Guardian) Signature/Date: I have read and understand the instructions given to me by my caregivers. Caregiver/RN/Doctor Signature/Date: The above-named patient and/or guardian has received patient instructions on this date. + Original Patient Signature Page (only) stays with chart. Please make copy for patient.
[2017-10-05 10:54] VITALS: BP 134/89; PULSE 74; O2SAT 97
== END | disposition home or self-care (01) ==
LOC: C.GI 09:07
PROVIDERS: ATTEND Internal Medicine
DX: K52.9 Noninfective gastroenteritis and colitis, unspecified (principal); K62.5 Hemorrhage of anus and rectum; K57.30 Diverticulosis of large intestine without perforation or abscess without bleeding; K64.8 Other hemorrhoids; E11.9 Type 2 diabetes mellitus without complications; J45.909 Unspecified asthma, uncomplicated; F32.9 Major depressive disorder, single episode, unspecified; F41.9 Anxiety disorder, unspecified; M19.90 Unspecified osteoarthritis, unspecified site; Z88.5 Allergy status to narcotic agent; Z88.1 Allergy status to other antibiotic agents; Z90.710 Acquired absence of both cervix and uterus; Z96.653 Presence of artificial knee joint, bilateral

== ENCOUNTER 2022-08-02 06:43 | Observation (INO) ==
[2022-08-02] MEDS ORDERED: ALBUT/IPRATROP 3MG/0.5MG NEB 3 ML VIAL INH STA (07:23)
[2022-08-02] MEDS ORDERED: methylPREDNISolone 125 MG/2 ML VIAL IV STA (07:23)
--- NOTE | 2022-08-02 07:32 | Emergency Department Note ---
History of Present Illness General Chief complaint: Respiratory Problems Stated complaint: CAN'T BREATHE,LOST VOICE - CAN'T TALK Time Seen by Provider: 08/02/22 07:07 History of Present Illness Patient is a 66-year-old female past medical history significant for asthma, GERD, diabetes, hypothyroidism, who returns to emergency department for evaluation of continued cough and shortness of breath after being diagnosed with influenza 3 days ago. She reports that she has been sick now for about a week and a half. She went to [id number] on Tuesday, 07/30 where a flu swab was positive. She was seen here in the emergency department. She had a chest x-ray which was clear and was given a nebulizer treatment. She was discharged on prednisone, Tamiflu and an albuterol inhaler but her symptoms are getting worse. She has been using 2 puffs of the inhaler every 4 hours. She continues to note tightness in her chest and wheezing. She is short of breath even with minimal exertion. She is coughing so hard she is either vomiting or urinating herself. She does have a lot of congestion in her chest but she is not able to clear it. She reports the mucus is dark and brown and very thick. She has not had any further fevers. She is using Tylenol in addition to the medications noted above. She has in the Advair inhaler but has not been using it. She is able to eat but does not have an appetite. She states her blood sugars have been a little bit high from the prednisone but otherwise not to abnormal and she is able to correct for them at home. She did receive an influenza vaccine and is up-to-date with all of her COVID vaccines. She has a remote history of a hospitalization for asthma but has never been intubated. Home Medications Medication Instructions Recorded Confirmed Type fluticasone 250 mcg-salmeterol 50 1 inh inhalation HS #3 ea 03/02/19 03/10/22 History mcg/dose blistr powdr for inhalation aspirin 81 mg tablet,delayed 81 mg PO QAM #30 tabs 04/03/19 03/10/22 History release multivitamin 1 tab PO QAM 04/03/19 03/10/22 History blood sugar diagnostic (OneTouch 09/24/19 03/10/22 History Ultra Blue Test Strip) diclofenac sodium 1 % topical gel 4 g topical UD PRN Pain #1 g 02/18/20 03/10/22 Rx levothyroxine 50 mcg tablet 50 mcg PO DAILY #90 tabs 02/18/20 03/10/22 Rx pantoprazole 20 mg tablet,delayed 20 mg PO DAILY #90 tabs 02/18/20 03/10/22 Rx release sertraline 100 mg tablet 100 mg PO DAILY #90 tabs 02/18/20 03/10/22 Rx albuterol sulfate 90 mcg/actuation 2 puff inhalation Q4H PRN 11/18/20 03/10/22 Rx aerosol inhaler (ProAir HFA) shortness of breath or wheezing #3 Inhalers meloxicam 15 mg tablet 15 mg PO DAILY 03/05/21 03/10/22 History tretinoin 0.05 % topical cream 1 applic topical HS 04/28/21 03/10/22 History adapalene 0.1 % topical gel 1 applic topical DAILY 06/11/21 03/10/22 History (Differin) gabapentin 100 mg capsule 300 mg PO DAILY 06/11/21 03/10/22 History fluticasone propionate 50 2 spray intranasal DAILY #15.8 11/11/21 03/10/22 Rx mcg/actuation nasal grams spray,suspension azithromycin 250 mg tablet See Rx Instructions PO .COMPLEX #6 03/10/22 03/10/22 Rx tabs desloratadine 5 mg tablet 5 mg PO DAILY #90 tabs 03/10/22 03/10/22 Rx methylprednisolone 4 mg tablets in 4 mg PO .COMPLEX #21 ea 03/10/22 03/10/22 Rx a dose pack (Medrol (Roberto)) montelukast 10 mg tablet 10 mg PO HS #90 tabs 03/10/22 03/10/22 Rx albuterol sulfate 90 mcg/actuation 2 inha inhalation QID PRN 07/30/22 Rx aerosol inhaler shortness of breath or wheezing #1 inhaler oseltamivir 75 mg capsule (Tamiflu) 75 mg PO BID 5 days #10 caps 07/30/22 Rx prednisone 50 mg tablet 50 mg PO DAILY 5 days #5 tabs 07/30/22 Rx Allergies Allergy/AdvReac Type Severity Reaction Status Date / Time cat dander Allergy Unknown TIGHTNESS Verified 03/10/22 08:55 IN CHEST codeine Allergy Unknown TACHYCARDIA Verified 03/10/22 08:55 AND RASH dog dander Allergy Unknown UNKNOWN Verified 03/10/22 08:55 REACTION oxycodone Allergy Unknown HEART Verified 03/10/22 08:55 RACING/HOT FEELING telithromycin Allergy Unknown UNKNOWN Verified 03/10/22 08:55 Past Med/Surg History Medical History Allergic rhinitis Asthma Back pain, chronic Chronic reflux esophagitis Depression with anxiety DM type 2 (diabetes mellitus, type 2) History of herpes zoster HLA-B27 positive Hypothyroidism (11/12/12) Internal hemorrhoids Knee pain, bilateral Osteoarthritis of hands, bilateral Right knee DJD Sacroiliitis Seborrheic keratosis Sleep disturbances Tiredness Vitamin B12 deficiency Vitamin D deficiency Surgical History H/O: hysterectomy History of oral surgery S/P knee replacement Status post replacement of right shoulder joint rotator cuff Status post total knee replacement, left Family History Father Myocardial infarction Prostate cancer Diabetes Stroke Cancer Hypertension Grandmother (Maternal) Ovarian cancer Mother Diabetes Asthma Stroke Allergies Sister Diabetes ALS (amyotrophic lateral sclerosis) Brother Diabetes Other No family history of bleeding disorder Denies family history of Colon cancer Heart disease Breast cancer Social History Smoking Status: Never smoker Second Hand Exposure: No; Hx Alcohol Use: No Hx Substance Use: No Preferred Language: Mauritian Communication Ability: Effective Visual Impairment: No Limitations Hearing Ability: Normal Dairy Manager Required: No Beliefs That Will Affect Care: None marital status: Current Living Situation: Spouse current occupational status: retired Feels Safe at Home: Yes Childhood Exposure to Second-Hand Smoke: Yes Dental Care, Regularly: Yes Physical Activity Frequency: 1-2 Times per Week Seatbelt Use: always Assistive Devices: Glasses Review of Systems A total of 10 systems reviewed and were otherwise negative Physical Exam Vital Signs Vital Signs - 24 hr 08/02/22 06:46 08/02/22 07:24 08/02/22 08:44 Temperature 36.8 C Temperature Source Temporal Artery Scan Pulse Rate 93 H Pulse Rate [Apical] 93 H Pulse Rate from SpO2 Sensor Pulse Rhythm [Apical] Regular Respiratory Rate 22 20 Respiratory Effort / Characteristics Short of Breath Non-Labored Spontaneous Non-Labored Spontaneous Respiratory Depth Normal Normal Respiratory Pattern Regular Blood Pressure 163/94 H Blood Pressure [Left Arm] 145/78 H Blood Pressure Mean 117 Blood Pressure Mean [Left Arm] 100 Pulse Oximetry 95 95 Oxygen Delivery Method Room Air Room Air Sepsis Recent Fever Within 48 Hours No Sepsis New/Unexplained Change in Mental Status No Sepsis Action Taken by Nursing No Action Required 08/02/22 07:24 08/02/22 07:24 08/02/22 07:10 Temperature Temperature Source Pulse Rate 85 Pulse Rate [Apical] Pulse Rate from SpO2 Sensor Pulse Rhythm [Apical] Respiratory Rate 23 Respiratory Effort / Characteristics Respiratory Depth Respiratory Pattern Blood Pressure Blood Pressure [Left Arm] Blood Pressure Mean Blood Pressure Mean [Left Arm] Pulse Oximetry 95 95 Oxygen Delivery Method Room Air Room Air Sepsis Recent Fever Within 48 Hours Sepsis New/Unexplained Change in Mental Status Sepsis Action Taken by Nursing 08/02/22 08:00 Temperature Temperature Source Pulse Rate 80 Pulse Rate [Apical] Pulse Rate from SpO2 Sensor 80 Pulse Rhythm [Apical] Respiratory Rate 13 Respiratory Effort / Characteristics Respiratory Depth Respiratory Pattern Blood Pressure Blood Pressure [Left Arm] Blood Pressure Mean Blood Pressure Mean [Left Arm] Pulse Oximetry 92 Oxygen Delivery Method Sepsis Recent Fever Within 48 Hours Sepsis New/Unexplained Change in Mental Status Sepsis Action Taken by Nursing CONSTITUTIONAL: Patient is an ill albeit nontoxic-appearing 66-year-old female who is awake and alert and in mild distress due to her illness. She is sitting upright on the gurney. She has a hoarse voice. Frequent deep cough. She is wheezing. EYES: Pupils equal, round, reactive to light and accommodation. EOMs intact without nystagmus. Sclera are anicteric. ENT: Tympanic membranes intact, with normal landmarks. External canals are clear. Oral and nasopharynx are clear. Mucous membranes are moist, no lesions, tongue and gums appear normal. CARDIOVASCULAR: Regular rate and rhythm. No JVD. Peripheral pulses easy to palpable. RESPIRATORY: Breath sounds are diminished and harsh to auscultation bilaterally with inspiratory and expiratory wheezes throughout. GI: Bowel sounds are present. Abdomen is soft, nontender, nondistended. No organomegaly. No pulsatile masses. No guarding or rebound. MUSCULOSKELETAL: Full range of motion of extremities x 4 with good strength. No cyanosis, edema, joint tenderness or swelling. No deformity. INTEGUMENTARY: No lesions or rash, normal skin turgor. NEUROLOGICAL: Alert, oriented, and cooperative. Cranial nerves, sensation and strength grossly intact. Pupils round, equal, and react to light, EOMs are full. LYMPH: No lymphadenopathy. Course Course Patient was seen and assessed as above. Old records were reviewed. She presents emergency department for ongoing wheezing and shortness of breath in the setting of being diagnosed with influenza a couple of days ago. She has been on prednisone, Tamiflu and has been using an albuterol inhaler as an outpatient but her symptoms are worsening. IV lock was initiated and laboratory studies were collected. CBC with differential, BMP and high-sensitivity troponin x2 were ordered. A repeat nasal swab for COVID/influenza/RSV was obtained. She was observed on a electronic device monitor. EKG was performed. Chest x- ray was obtained. She was given a DuoNeb treatment and Solu-Medrol 125 mg IV. Laboratory studies note a normal white count at 6700, platelets [id number]. Electrolytes note a slightly low potassium at 3.3, BUN 30, creatinine 0.91. Initial high-sensitivity troponin within normal limits at 4.8. EKG is without acute ischemic changes. Cardiac monitoring: An order was placed for continuous cardiac monitoring. The monitor shows a normal sinus rhythm in the 90s. Patient was reassessed after the initial nebulizer treatment, had a little relief of this. She was reexamined and still had coarse wheezes throughout. She was ordered a second DuoNeb. Chest x-ray is clear, no signs of infiltrate or failure. Patient was reassessed after the second nebulizer treatment. She subjectively feels a little bit better but clinically does not sound improved. She was ordered a third DuoNeb. I discussed the patient with the radiology manager and reviewed her with attending physician, Dr. Cherry. Admission/observation in the hospital was discussed with the patient, and she was agreeable. Patient was reviewed with the [facility] Hospitalist service, and they will see her. The patient's second 2-hour high-sensitivity troponin was also within normal limits and not indicative of acute ischemia. Patient remained stable while awaiting hospitalist evaluation. Administered Medications Albuterol (Albut/Ipratrop 3mg/0.5mg Neb 3 Ml Vial) 3 ml NEB [facility]IDR [facility]; Protocol Stop: 09/01/22 12:03 Last Admin: 08/02/22 19:51 Dose: Not Given Documented By: Admin: 08/02/22 15:54 Dose: 3 ml Documented By: Admin: 08/02/22 13:06 Dose: 3 ml Documented By: EM Aspirin (Aspirin 81 Mg Ectab) 81 mg PO QAM JOCE Stop: 09/01/22 12:03 Last Admin: 08/02/22 13:19 Dose: 81 mg Documented By: HS Budesonide (Budesonide 0.5 Mg/2 Ml Vial (Pulmicort)) 0.5 mg NEB BIDR JOCE Stop: 09/01/22 18:59 Last Admin: 08/02/22 19:47 Dose: 0.5 mg Documented By: HMR Enoxaparin Sodium (Enoxaparin Inj 40 Mg/0.4 Ml Syr) 40 mg SQ QAM JOCE Stop: 09/01/22 12:03 Last Admin: 08/02/22 13:21 Dose: Not Given Documented By: HS Formoterol Fumarate (Formoterol 20 Mcg/2 Ml Vial) 20 mcg NEB BIDR JOCE Stop: 09/01/22 12:03 Last Admin: 08/02/22 19:47 Dose: 20 mcg Documented By: Admin: 08/02/22 13:06 Dose: Not Given Documented By: EM Guaifenesin (Guaifenesin 600 Mg Tabcr) 600 mg PO Q12 JOCE Stop: 09/01/22 10:44 Last Admin: 08/02/22 11:08 Dose: 600 mg Documented By: HS Methylprednisolone 40 mg/ (Syringe) 0.64 mls @ 1.5 mls/min IV Q8H JOCE Stop: 09/01/22 15:59 Last Admin: 08/02/22 17:16 Dose: 1.5 mls/min Documented By: RDD Oseltamivir Phosphate (Oseltamivir Phosphate 75 Mg Cap) 75 mg PO BID JOCE; Protocol Stop: 08/03/22 21:01 Last Admin: 08/02/22 21:25 Dose: 75 mg Documented By: Admin: 08/02/22 13:19 Dose: 75 mg Documented By: HS Discontinued Medications Albuterol (Albut/Ipratrop 3mg/0.5mg Neb 3 Ml Vial) 3 ml INH NOW STA Stop: 08/02/22 07:24 Last Admin: 08/02/22 07:46 Dose: 3 ml Documented By: HS Albuterol (Albut/Ipratrop 3mg/0.5mg Neb 3 Ml Vial) 3 ml NEB NOW STA; Protocol Stop: 08/02/22 08:05 Last Admin: 08/02/22 08:11 Dose: 3 ml Documented By: HS Albuterol (Albut/Ipratrop 3mg/0.5mg Neb 3 Ml Vial) 3 ml NEB NOW STA; Protocol Stop: 08/02/22 08:46 Last Admin: 08/02/22 08:53 Dose: 3 ml Documented By: HS Azithromycin (Azithromycin 250 Mg Tab) 500 mg PO NOW ONE Stop: 08/02/22 12:05 Last Admin: 08/02/22 13:19 Dose: 500 mg Documented By: HS Methylprednisolone (Methylprednisolone 125 Mg/2 Ml Vial) 125 mg IV NOW STA Stop: 08/02/22 07:24 Last Admin: 08/02/22 07:46 Dose: 125 mg Documented By: HS Potassium Chloride (Potassium Chloride Crtab 20 Meq Tabcr) 40 meq PO NOW STA Stop: 08/02/22 12:05 Last Admin: 08/02/22 13:19 Dose: 40 meq Documented By: HS Medical Decision Making Differential Diagnosis Differential diagnosis includes acute myocardial infarction, acute coronary syndrome, myocarditis, pericarditis, pulmonary embolism, pneumonia, pneumothorax, cardiomyopathy, congestive heart failure, anemia , COPD/asthma exacerbation, musculoskeletal, anxiety, costochondritis, viral illness, among others. Medical Records Attestation: I reviewed the patient's medical records. Home Medications Current Medication List: was personally reviewed by me Laboratory Data Attestation: I reviewed the patient's lab results. Result diagrams: 08/02/22 07:17 08/02/22 07:17 Lab Results 08/02/22 08/02/22 08/02/22 Range/Units 07:17 07:17 07:40 WBC 6.73 (4.8-10.8) K/ul RBC 4.54 (3.93-5.22) M/uL Hgb 12.9 (12.0-16.0) g/dl Hct 39.1 (34.1-44.9) % MCV 86.1 (80.0-100.0) fL MCH 28.4 (25.0-34.0) pg MCHC 33.0 (32.0-36.0) g/dL RDW Std Deviation 43.2 (36.4-46.3) fL RDW Coeff of Malachi 13.6 (11.5-14.5) % Plt Count 124 L (130-400) K/uL MPV 11.0 (9.4-12.3) fL Immature Gran % (Auto) 0.6 % Neut % (Auto) 78.0 % Lymph % (Auto) 11.9 % Frio % (Auto) 9.2 % Eos % (Auto) 0.0 % Baso % (Auto) 0.3 % Neut # (Auto) 5.25 (1.4-6.5) K/uL Lymph # (Auto) 0.80 L (1.2-3.4) K/uL Frio # (Auto) 0.62 (0.24-0.82) K/uL Eos # (Auto) 0.00 (0-0.50) K/uL Baso # (Auto) 0.02 (0-0.2) K/uL Immature Gran # (Auto) 0.04 H (0.00-0.02) K/uL Sodium 141 (136-145) mmol/L Potassium 3.3 L (3.5-5.1) mmol/L Chloride 106 (98-107) mmol/L Carbon Dioxide 26 (21-32) mmol/L Anion Gap 9 (3-11) BUN 30 H (6-23) mg/dl Creatinine 0.91 (0.6-1.2) mg/dl Est Cr Clr Drug Dosing 63.1 ml/min Est GFR ( Amer) 75.7 ml/min Est GFR (Non-Af Amer) 65.3 ml/min BUN/Creatinine Ratio 33.0 H (10-20) Glucose 127 H (70-99(Fasting)) mg/dl Calcium 9.2 (8.5-10.1) mg/dl Troponin I High Sens 4.8 (0-14) pg/ml SARS-CoV-2 (PCR) NEGATIVE (Negative) Influenza Type A (PCR) Positive A* (Neg) Influenza Type B (PCR) Negative (Neg) RSV (RT-PCR) Negative (Neg) Imaging Data Attestation: I personally reviewed and interpreted this imaging study as follows: Radiologist's Impression: Chest X-Ray 08/02/22 07:24 XR chest 1V portable CLINICAL HISTORY: Dyspnea. COMPARISON STUDY: Chest CT October 30, 2020 and chest radiograph July 30, 2022. FINDINGS: Lung volumes are normal. Lungs are clear. There is no pneumothorax or pleural effusion. Mild enlargement of the cardiac silhouette is noted. Mediastinal contours are normal. There is no evidence for pulmonary edema. IMPRESSION: No acute cardiopulmonary findings. ACT 112: Negative or not required by law. Electronically signed by: Sathish Hillman M.D. 08/02/2022 8:13 AM ECG Data Attestation: I personally reviewed and interpreted this ECG as follows: Indication: + SOB/dyspnea Rate (beats per minute): 84 Rhythm: + sinus with SA ECG Falcon: + Normal ECG ST segments: + Normal ST segments Comparison ECG Date: from (04/2022) Change: no significant change MDM Narrative See ED Course. Impression & Plan Asthma exacerbation, Influenza A Discharge Plan Visit Data Chief Complaint: Respiratory Problems Stated Complaint: CAN'T BREATHE,LOST VOICE - CAN'T TALK ED Provider: Too Cherry ED Midlevel Provider: Lyn Gloria Discharge Problem: Asthma exacerbation, Influenza A Patient Disposition: Admitted As Inpatient Discharge Instructions Interventions: ED Discharge Assessment Last Done: 08/02/22 12:05 Addendum August 02, 2022 21:44 HPI: The patient is a 66-year-old woman with a past medical history of asthma, diabetes, hypothyroidism, GERD who presents emergency department for ongoing cough and shortness of breath in the setting of symptoms beginning approximately 10 days ago and diagnosed with influenza on 07/30 at urgent care subsequently seen in the emergency department and had an unremarkable chest x-ray and treated with nebulizer treatment and discharged on prednisone and Tamiflu. However despite these medications she feels she has continued to have a persistent symptoms with episodes of posttussive emesis. She reports chest tightness due to her congestion and difficulty clearing mucus which she describes as thick and dark brown. A/P: EKG without overt acute ischemia. CXR negative for acute cardiopulmonary process. WBC within normal limits. H/H wnl. Platelets 124K, nonspecific approximate to prior. Chemistry without metabolic acidosis. BUN 30. High- sensitivity troponin 4.2, within normal limits. Influenza A confirmed positive on PCR testing. Patient was treated with several DuoNeb treatments but still significantly symptomatic. Reports this enough symptoms in the setting of influenza with risk factors patient was referred to the hospitalist service for admission. I was consulted by the Advanced Practice Provider.I performed a substantive portion of the visit.This includes aspects of the HPI, MDM, diagnostic interpretations, and disposition/plan. I discussed the case with the PAMELA, and agree with the findings and plan as documented in PAMELA Faizan's note.
[2022-08-02 07:53] LABS: Hematocrit (blood only) 39.1 % (34.1-44.9); Hemoglobin 12.9 g/dl (12.0-16.0); Mean Corpuscular Hemoglobin 28.4 pg (25.0-34.0); Mean Corpuscular Volume 86.1 fL (80.0-100.0); Platelet Count 124 K/uL (130-400); RDW Coefficient of Variation 13.6 % (11.5-14.5); RDW Standard Deviation 43.2 fL (36.4-46.3); Red Blood Count 4.54 M/uL (3.93-5.22); White Blood Count 6.73 K/ul (4.8-10.8)
[2022-08-02 07:54] LABS: Calcium 9.2 mg/dl (8.5-10.1); Creatinine Clr Calc Pharmacy 63.1 ml/min; Est GFR (African American) 75.7 ml/min; Est GFR (Non-African American) 65.3 ml/min; Potassium 3.3 mmol/L (3.5-5.1)
[2022-08-02 08:00] LABS: Troponin I High Sensitivity 4.8 pg/ml (0-14)
[2022-08-02] MEDS ORDERED: ALBUT/IPRATROP 3MG/0.5MG NEB 3 ML VIAL NEB STA ×2 (08:04→08:45)
[2022-08-02 08:08] LABS: Basophils # (auto) 0.02 K/uL (0-0.2); Basophils % (auto) 0.3 %; Immature Granulocytes # (auto) 0.04 K/uL (0.00-0.02); Immature Granulocytes % (auto) 0.6 %; Lymphocytes % (auto) 11.9 %; Monocytes # (auto) 0.62 K/uL (0.24-0.82); Monocytes % (auto) 9.2 %; Neutrophils # (auto) 5.25 K/uL (1.4-6.5)
--- NOTE | 2022-08-02 08:14 | XRay Report ---
XR chest 1V portable CLINICAL HISTORY: Dyspnea. COMPARISON STUDY: Chest CT October 30, 2020 and chest radiograph July 30, 2022. FINDINGS: Lung volumes are normal. Lungs are clear. There is no pneumothorax or pleural effusion. Mil d enlargement of the cardiac silhouette is noted. Mediastinal contours are normal. There is no eviden ce for pulmonary edema. IMPRESSION: No acute cardiopulmonary findings. ACT 112: Negative or not required by law. Electronically signed by: Sathish Hillman M.D. 08/02/2022 8:13 AM
[2022-08-02 08:25] LABS: Influenza B virus by PCR Negative (Neg); RSV by PCR Negative (Neg); SARS CoV2 RNA(COVID-19) Ceph NEGATIVE (Negative)
[2022-08-02 08:32] LABS: Influenza A virus by PCR Positive (Neg)
--- NOTE | 2022-08-02 10:34 | History & Physical Report ---
Date of Service August 02, 2022 Assessment & Plan (1) Influenza A: Plan: Influenza A with concurrent asthma exacerbation - Obs to med/surg - Complete course of Tamiflu 75mg BID x 4 more doses + Zithromax 500mg PO x1 followed by 250mg daily x 4 days - Routine Duonebs QID and then q2h prn dyspnea/wheezing - Add Budesonide and Formoterol scheduled BID - Solumedrol 40mg IV q8 - Mucinex 600mg BID - Currently not requiring O2, but if O2 sat <90% apply and titrate to maintain sat >90 (2) Asthma exacerbation: Plan: - See above (3) Hypothyroidism: Plan: - Resume Levothyroxine (4) Chronic reflux esophagitis: Plan: - Continue PPI Plan Will verify home medications and resume as appropriate for the hospitalization. Follow up labs tomorrow AM. Plan of care has been d/w Dr. Jurado who will also seen and evaluate this patient. Further orders as warranted. History of Present Illness Chief Complaint: shortness of breath Primary Care Provider: Felicia Kumar MD Candace Gar is a 66 yo WF with a pmhx of asthma who presented to the ER today c/o increased dyspnea. She notes that she has had cough, congestion, and progressive shortness of breath over the past 7 days. Last Tuesday, she was seen in the ED for symptoms and tested positive for influenza A. She was sent home on a course of Tamiflu and Medrol dose pack as her CXR was unremarkable and she was not hypoxic. Pt was doing well up until yesterday evening when she felt she was significantly more short of breath and felt that she was "going to ." When she arrived the ER, she was not hypoxic, continues to test positive for flu A, was medicated with 3 Duonebs and a dose of Solumedrol. Currently, she is breathing more comfortably. She continues to sat mid 90s on room air. She denies chest pain. COVID and RSV were negative. She was referred for observation for continued care. Allergies Allergy/AdvReac Type Severity Reaction Status Date / Time cat dander Allergy Unknown TIGHTNESS Verified 03/10/22 08:55 IN CHEST codeine Allergy Unknown TACHYCARDIA Verified 03/10/22 08:55 AND RASH dog dander Allergy Unknown UNKNOWN Verified 03/10/22 08:55 REACTION oxycodone Allergy Unknown HEART Verified 03/10/22 08:55 RACING/HOT FEELING telithromycin Allergy Unknown UNKNOWN Verified 03/10/22 08:55 Dust Mite Extract Allergy Unknown TIGHTNESS Uncoded 03/10/22 08:55 IN CHEST Home Medications Medication Instructions Recorded Confirmed Type fluticasone 250 mcg-salmeterol 50 1 inh inhalation HS #3 ea 03/02/19 03/10/22 History mcg/dose blistr powdr for inhalation aspirin 81 mg tablet,delayed 81 mg PO QAM #30 tabs 04/03/19 03/10/22 History release multivitamin 1 tab PO QAM 04/03/19 03/10/22 History blood sugar diagnostic (OneTouch 09/24/19 03/10/22 History Ultra Blue Test Strip) diclofenac sodium 1 % topical gel 4 g topical UD PRN Pain #1 g 02/18/20 03/10/22 Rx levothyroxine 50 mcg tablet 50 mcg PO DAILY #90 tabs 02/18/20 03/10/22 Rx pantoprazole 20 mg tablet,delayed 20 mg PO DAILY #90 tabs 02/18/20 03/10/22 Rx release sertraline 100 mg tablet 100 mg PO DAILY #90 tabs 02/18/20 03/10/22 Rx albuterol sulfate 90 mcg/actuation 2 puff inhalation Q4H PRN 11/18/20 03/10/22 Rx aerosol inhaler (ProAir HFA) shortness of breath or wheezing #3 Inhalers meloxicam 15 mg tablet 15 mg PO DAILY 03/05/21 03/10/22 History tretinoin 0.05 % topical cream 1 applic topical HS 04/28/21 03/10/22 History adapalene 0.1 % topical gel 1 applic topical DAILY 06/11/21 03/10/22 History (Differin) gabapentin 100 mg capsule 300 mg PO DAILY 06/11/21 03/10/22 History fluticasone propionate 50 2 spray intranasal DAILY #15.8 11/11/21 03/10/22 Rx mcg/actuation nasal grams spray,suspension azithromycin 250 mg tablet See Rx Instructions PO .COMPLEX #6 03/10/22 03/10/22 Rx tabs desloratadine 5 mg tablet 5 mg PO DAILY #90 tabs 07/06/22 07/06/22 Rx methylprednisolone 4 mg tablets in 4 mg PO .COMPLEX #21 ea 03/10/22 03/10/22 Rx a dose pack (Medrol (Roberto)) montelukast 10 mg tablet 10 mg PO HS #90 tabs 03/10/22 03/10/22 Rx albuterol sulfate 90 mcg/actuation 2 inha inhalation QID PRN 07/30/22 Rx aerosol inhaler shortness of breath or wheezing #1 inhaler oseltamivir 75 mg capsule (Tamiflu) 75 mg PO BID 5 days #10 caps 07/30/22 Rx prednisone 50 mg tablet 50 mg PO DAILY 5 days #5 tabs 07/30/22 Rx Past Med/Surg History Medical History Allergic rhinitis Asthma Back pain, chronic Chronic reflux esophagitis Depression with anxiety DM type 2 (diabetes mellitus, type 2) History of herpes zoster HLA-B27 positive Hypothyroidism (11/12/12) Internal hemorrhoids Knee pain, bilateral Osteoarthritis of hands, bilateral Right knee DJD Sacroiliitis Seborrheic keratosis Sleep disturbances Tiredness Vitamin B12 deficiency Vitamin D deficiency Surgical History H/O: hysterectomy History of oral surgery S/P knee replacement Status post replacement of right shoulder joint rotator cuff Status post total knee replacement, left Family History Father Myocardial infarction Prostate cancer Diabetes Stroke Cancer Hypertension Grandmother (Maternal) Ovarian cancer Mother Diabetes Asthma Stroke Allergies Sister Diabetes ALS (amyotrophic lateral sclerosis) Brother Diabetes Other No family history of bleeding disorder Denies family history of Colon cancer Heart disease Breast cancer Social History Smoking Status: Never smoker Second Hand Exposure: No; Hx Alcohol Use: No Hx Substance Use: No Preferred Language: Nauruan Communication Ability: Effective Visual Impairment: No Limitations Hearing Ability: Normal 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 Denies fever, chills, fatigue, headache, sore throat, chest pain, palpitations, orthopnea, PND, abdominal pain, n/v/d, constipation, dysuria, hematuria, frequency, back pain, joint pain or swelling, easy bruising or bleeding, skin lesions or rashes. Physical Exam Physical Exam: GENERAL: 66 yo pleasant obese WF. NAD. EYES: EOMI. PERRLA. Anicteric. HENT: Moist mucous membranes. No scleral icterus. No cervical lymphadenopathy. LUNGS: Fair air exchange. Scattered expiratory wheezes appreciated throughout. CARDIOVASCULAR: Regular rate and rhythm. No M/G/R. No JVD. ABDOMEN: Soft, non-tender and non-distended. Bs normoactive x 4 quad. EXTREMITIES: No edema. Non-tender. Peripheral pulses +2/4. NEUROLOGIC: A&O x3. No focal neurological deficits. CN II-XII grossly intact. PSYCHIATRIC: Cooperative. Appropriate mood and affect. SKIN: Warm, dry, intact. No rashes or lesions. Results & Data Results & Data ([facility]) Vital Signs (Past 12 Hours) Vital Signs Temp Pulse Pulse Resp BP BP Pulse Ox 08/02/22 08:44 93 H 20 145/78 H 95 08/02/22 06:46 36.8 C 93 H 22 163/94 H 95 O2 Del Method 08/02/22 08:44 Room Air 08/02/22 06:46 Room Air Laboratory Results 08/02/22 07:17 08/02/22 07:17 Diagnostic Findings Chest X-Ray 08/02/22 07:24 XR chest 1V portable CLINICAL HISTORY: Dyspnea. COMPARISON STUDY: Chest CT October 30, 2020 and chest radiograph July 30, 2022. FINDINGS: Lung volumes are normal. Lungs are clear. There is no pneumothorax or pleural effusion. Mild enlargement of the cardiac silhouette is noted. Mediastinal contours are normal. There is no evidence for pulmonary edema. IMPRESSION: No acute cardiopulmonary findings. ACT 112: Negative or not required by law. Electronically signed by: Sathish Hillman M.D. 08/02/2022 8:13 AM ECG Additional Comments: Nonacute Supervising Physician Co-Signing Physician Notes Patient seen and examined, chart reviewed, case discussed with Karina Garcia PA-C and I agree with the assessment and plan as above except as otherwise noted Labs and images reviewed Candace is a 66-year-old female with a past medical history of asthma, hypothyroidism, HLAB 27, DM2, esophagitis, ankylosing spondylitis, cluster headache who presented to the emergency department with approximately 10 days of cough and shortness of breath with a diagnosis of influenza at [facility] 07/30. sent to the emergency department for continued shortness of breath and congestion. At bedside patient with normal oxygen saturation on room air, however breathing is tight. Patient is with scattered and expiratory wheezes and reduced air movement. She reports since receiving steroids she does feel much better than coming in, but still "tight ". Mild regular tachycardia. No pitting edema. No distress. Reports that she felt ill for a week and a half, but her breathing worsened 3 days ago. Does have a history of asthma as noted. 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 If BSG greater than 180, add on sliding scale insulin . Management above PG Care Time/CCT Total # of Minutes Spent Total Time Spent with Patient: Total time spent is greater than 50% in coordination of care (as documented) at patient's floor/unit and/or counseling patient: Coding Level of Care Code 30437 Initial Inpt Care Lvl 2 Diagnoses Influenza A J10.1 Asthma exacerbation J45.901 Hypothyroidism E03.9 Chronic reflux esophagitis K21.0
--- NOTE | 2022-08-02 10:55 | Electrocardiogram Report ---
Test Reason : Blood Pressure : / mmHG Vent. Rate : 084 BPM Atrial Rate : 084 BPM P-R Int : 120 ms QRS Dur : 084 ms QT Int : 352 ms P-R-T Axes : 068 048 053 degrees QTc Int : 415 ms Normal sinus rhythm with sinus arrhythmia Normal ECG When compared with ECG of 14-APR-2022 09:36, T wave amplitude has decreased in Anterior leads Confirmed by James Alcala ([id number]) on 08/02/2022 10:55:12 AM Referred By: REFERRED SELF Confirmed By:Adalberto Alcala
[2022-08-02] MEDS: guaiFENesin 600 MG TABCR PO SCH ×2 (11:08→22:33)
[2022-08-02] MEDS ORDERED: AZITHROMYCIN 250 MG TAB PO ONE (12:04)
[2022-08-02] MEDS ORDERED: ALUMINUM/MAGNESIUM SUSP 30 ML UDC PO PRN (12:04)
[2022-08-02] MEDS ORDERED: MAGNESIUM HYDROXIDE SUSP 30 ML UDC PO PRN (12:04)
[2022-08-02] MEDS ORDERED: ONDANSETRON INJ 2 MG/ML 2 ML VIAL IV PRN (12:04)
[2022-08-02] MEDS ORDERED: POTASSIUM CHLORIDE CRTAB 20 MEQ TABCR PO STA (12:04)
[2022-08-02] MEDS ORDERED: ACETAMINOPHEN 325 MG TAB PO PRN (12:04)
[2022-08-02 12:24] LABS: Estimated Average Glucose 128 mg/dl; Hemoglobin A1C 6.1 % (4.5-5.6)
[2022-08-02] MEDS: FORMOTEROL 20 MCG/2 ML VIAL NEB SCH ×2 (13:06→19:47)
[2022-08-02] MEDS: ALBUT/IPRATROP 3MG/0.5MG NEB 3 ML VIAL NEB SCH ×3 (13:06→19:51)
[2022-08-02] MEDS: ASPIRIN 81 MG ECTAB PO SCH (13:19)
[2022-08-02] MEDS: OSELTAMIVIR PHOSPHATE 75 MG CAP PO SCH ×2 (13:19→21:25)
[2022-08-02] MEDS: ENOXAPARIN INJ 40 MG/0.4 ML SYR SQ SCH (13:21)
[2022-08-02] MEDS: methylPREDNISolone 40 MG in SYRINGE 0 ML IV SCH (17:16)
[2022-08-02] MEDS: BUDESONIDE 0.5 MG/2 ML VIAL (PULMICORT) NEB SCH (19:47)
[2022-08-02] MEDS ORDERED: CARBOHYDRATES FOR HYPOGLYCEMIA PO PRN (21:22)
[2022-08-02] MEDS ORDERED: GLUCAGON FOR INJ 1 MG VIAL SQ PRN (21:22)
[2022-08-02] MEDS ORDERED: GLUCOSE 40% GEL 15 GM TUBE PO PRN (21:22)
[2022-08-02] MEDS ORDERED: DEXTROSE 50% 50 ML SYRINGE IV PRN (21:22)
[2022-08-02] MEDS ORDERED: GLUCOSE 10 TAB/TUBE PO PRN (21:22)
--- NOTE | 2022-08-02 21:25 | Communication Note ---
Date of Service: August 02, 2022 Patient's history of DM / impaired fasting glucose appreciated with recent A1c in the prediabetic range. Addendum appreciated from H&P, requesting that if BSG persistently > 180, to add coverage. Patient with two BSGs > 300 on steroids. Will add ACHS coverage, await A1c in AM, and do a 1:40 correction factor with hypoglycemic precautions on her chart. Plan communicated to RN
[2022-08-02] MEDS: INSULIN ASPART PER UNIT SC SCH (22:31)
[2022-08-03] MEDS: methylPREDNISolone 40 MG in SYRINGE 0 ML IV SCH ×2 (00:23→08:45)
[2022-08-03] MEDS ORDERED: BENZONATATE 100 MG CAPSULE PO ONE (00:42)
[2022-08-03] MEDS: BUDESONIDE 0.5 MG/2 ML VIAL (PULMICORT) NEB SCH (07:15)
[2022-08-03] MEDS: FORMOTEROL 20 MCG/2 ML VIAL NEB SCH (07:15)
[2022-08-03] MEDS: ALBUT/IPRATROP 3MG/0.5MG NEB 3 ML VIAL NEB SCH ×3 (07:15→14:15)
[2022-08-03] MEDS ORDERED: INSULIN ASPART PER UNIT SC SCH (07:30)
[2022-08-03] MEDS: INSULIN ASPART PER UNIT SC SCH ×2 (08:44→12:50)
[2022-08-03] MEDS: ENOXAPARIN INJ 40 MG/0.4 ML SYR SQ SCH (08:45)
[2022-08-03] MEDS: guaiFENesin 600 MG TABCR PO SCH (08:45)
[2022-08-03] MEDS: ASPIRIN 81 MG ECTAB PO SCH (08:46)
[2022-08-03] MEDS: OSELTAMIVIR PHOSPHATE 75 MG CAP PO SCH (08:46)
[2022-08-03] MEDS ORDERED: LANTUS PER UNIT CHARGE SQ SCH (09:00)
[2022-08-03] MEDS ORDERED: BENZONATATE 100 MG CAPSULE PO SCH (09:00)
[2022-08-03] MEDS ORDERED: AZITHROMYCIN 250 MG TAB PO SCH (09:00)
[2022-08-03 10:33] LABS: Basophils # (auto) 0.02 K/uL (0-0.2); Basophils % (auto) 0.3 %; Hematocrit (blood only) 38.9 % (34.1-44.9); Immature Granulocytes # (auto) 0.11 K/uL (0.00-0.02); Immature Granulocytes % (auto) 1.5 %; Lymphocytes # (auto) 0.52 K/uL (1.2-3.4); Mean Corpuscular Hemoglobin 28.3 pg (25.0-34.0); Mean Corpuscular Hgb Conc 33.4 g/dL (32.0-36.0); Mean Corpuscular Volume 84.7 fL (80.0-100.0); Mean Platelet Volume 10.7 fL (9.4-12.3); Monocytes # (auto) 0.29 K/uL (0.24-0.82); Monocytes % (auto) 3.9 %; Neutrophils # (auto) 6.46 K/uL (1.4-6.5); Neutrophils % (auto) 87.3 %; Platelet Count 148 K/uL (130-400); RDW Coefficient of Variation 13.3 % (11.5-14.5); RDW Standard Deviation 41.5 fL (36.4-46.3); Red Blood Count 4.59 M/uL (3.93-5.22)
[2022-08-03 11:03] LABS: BUN Creatinine Ratio 29.2 (10-20); Calcium 9.6 mg/dl (8.5-10.1); Creatinine Clr Calc Pharmacy 63.9 ml/min; Est GFR (African American) 77.7 ml/min; Est GFR (Non-African American) 67.1 ml/min; Potassium 3.9 mmol/L (3.5-5.1)
--- NOTE | 2022-08-03 17:34 | Discharge Summary ---
Date of Service August 03, 2022 Admission HPI Per Admitting Provider Candace Gar is a 66 yo WF with a pmhx of asthma who presented to the ER today c/o increased dyspnea. She notes that she has had cough, congestion, and progressive shortness of breath over the past 7 days. Last Tuesday, she was seen in the ED for symptoms and tested positive for influenza A. She was sent home on a course of Tamiflu and Medrol dose pack as her CXR was unremarkable and she was not hypoxic. Pt was doing well up until yesterday evening when she felt she was significantly more short of breath and felt that she was "going to ." When she arrived the ER, she was not hypoxic, continues to test positive for flu A, was medicated with 3 Duonebs and a dose of Solumedrol. Currently, she is breathing more comfortably. She continues to sat mid 90s on room air. She denies chest pain. COVID and RSV were negative. She was referred for observation for continued care. Principal Diagnosis influenza with secondary asthma exacerbation Discharge Exam in general she is awake and alert pleasant no distress. HEENT normocephalic atraumatic mucous membranes moist. Cardio regular without rubs murmurs gallops. Lungs clear to auscultation bilaterally no rales rhonchi or wheeze with good effort. No conversational dyspnea on room air. Skin shows no rashes no pallor or icterus. Neuro without focal deficits/no lateralizing signs. Discharge Data Allergies Allergy/AdvReac Type Severity Reaction Status Date / Time cat dander Allergy Unknown TIGHTNESS Verified 03/10/22 08:55 IN CHEST codeine Allergy Unknown TACHYCARDIA Verified 03/10/22 08:55 AND RASH dog dander Allergy Unknown UNKNOWN Verified 03/10/22 08:55 REACTION oxycodone Allergy Unknown HEART Verified 03/10/22 08:55 RACING/HOT FEELING telithromycin Allergy Unknown UNKNOWN Verified 03/10/22 08:55 Consultations 08/02/22 09:00 ED Decision to Admit Stat Hospital Course (1) Influenza A: Influenza A with concurrent asthma exacerbation - doing better. safe/stable for home. taper prednisone. already Rx'd zithromax. discussed recovery easily ill frequently, etc - discussed rheum w/u w PCP and/or follow up w local rheumatology (2) Asthma exacerbation: (3) Hypothyroidism: Levothyroxine (4) Chronic reflux esophagitis: - Continue PPI Plan stable for home Total Time Total Time Spent Total Time Spent (In Minutes): >30 Discharge Plan Discharge Items Patient Disposition: Home - Self-Care Reason For Visit: DYSPNEA Discharge Diagnosis: asthma exacerbation (caused by influenza) Activity: Resume your previous activity Non-emergency contact: Primary Care Provider Call non-emergency contact if: you have any medication questions and your symptoms worsen Follow-up/Referrals: Felicia Kumar MD [Primary Care Provider] - 08/09/22 7:50 am (Appointment with Dr. Jovanni Busby at the [facility] location.) Diet: Carb Consistent or DM2 Addtl Attending Provider Instructions: Asthma exacerbation - it appears what was getting is so sick was not just the influenza, but also that it sparked an asthma flare. Fortunately you are improving. It is extremely rare, once somebody starts to get better on steroids with asthma, for them to backslide. As we discussed, really the most likely way that would happen is if you picked up a new pneumonia as yet another infection, which is actually less likely to happen if we get you home rather than keeping you in the hospital. - We will finish out a course of steroids with prednisone 60 mg for 2 days, 50 mg for 2 days, 40 mg for 2 days, 30 mg for 2 days, 20 mg for 2 days, 10 mg for 2 days and then stopyour first dose of the 60 mg should be tomorrow morning. As we discussed, since steroids can make you "hungry and hyper" it is best to take the full dose fairly early in the day - it is possible that that course of steroids might be longer than you needin a perfect world it would be ideal to see your PCP on Tuesdayby then if you are looking and feeling pretty good overall, they might be able to stop the steroids sooner rather than finishing up the taper - as it relates to the steroids and your sugars, since her A1c is 6.1, the acute increase in sugars related to the steroids is probably best left ignored. As we discussed, we can certainly craft a temporary and decreasing regimen to keep your sugars in line while you are on the steroids, but since the problem of "high sugars clog arteries" tends to be a 5 to 10-year problem, 1 week of high sugars is not likely to be much of a big deal. (Where sugars acutely become a big deal is leading to dehydrationtypically that is not the case unless somebody is persistently above 3 [id number]). - As it relates to the influenza itself, finish out the course of Tamiflu already prescribed separately, as we discussed, there is enough about your immune system that, while statistically it may not be anything to be able to put a diagnosis on, it certainly sounds suspicious. Since you do not currently have a doctor of pharmacy, I would definitely have your primary follow through on things, and have you see Dr. Qureshi locally Pending Studies at Discharge: No Stand-Alone Forms: My [facility], Smoking Cessation Medications and DC Order Prescriptions: New prednisone 10 mg tablet 10 mg PO DIRECTED Qty: 42 0RF Rx Instructions: [id number], then [id number], then [id number], then [id number], then [id number], then [id number] then stop prednisone 10 mg tablet 10 mg PO DIRECTED Qty: 42 0RF Rx Instructions: 60mg po x 2 days, then 50mg po x2 days, then 40mg po x2days, then 30mg po x2 days, then 20mg po x2days, then 10mg pox2 days then stop albuterol sulfate 2.5 mg /3 mL (0.083 %) solution for nebulization 1.25 mg inhalation Q6H PRN (Reason: shortness of breath or wheezing) Qty: 90 0RF Continued diclofenac sodium 1 % gel 4 g topical UD PRN (Reason: Pain) Qty: 1 0RF levothyroxine 50 mcg tablet 50 mcg PO DAILY Qty: 90 3RF sertraline 100 mg tablet 100 mg PO DAILY Qty: 90 3RF pantoprazole 20 mg tablet,delayed release (DR/EC) 20 mg PO DAILY Qty: 90 3RF albuterol sulfate [ProAir HFA] 90 mcg/actuation HFA aerosol inhaler 2 puff inhalation Q4H PRN (Reason: shortness of breath or wheezing) Qty: 3 3RF fluticasone propion-salmeterol 250-50 mcg/dose blister with device 1 inh inhalation HS Qty: 3 Rx Instructions: PATIENTS STATES SHE ONLY DOES 1 PUFF AT NIGHT TIME multivitamin tablet 1 tab PO QAM aspirin 81 mg tablet,delayed release (DR/EC) 81 mg PO QAM Qty: 30 montelukast 10 mg tablet 10 mg PO HS Qty: 90 3RF desloratadine 5 mg tablet 5 mg PO DAILY Qty: 90 3RF azithromycin 250 mg tablet See Rx Instructions PO .COMPLEX Qty: 6 1RF Rx Instructions: take 500 mg today (day 1), then 250 mg for 4 days (days 2-5) PO meloxicam 15 mg tablet 15 mg PO DAILY gabapentin 100 mg capsule 300 mg PO DAILY fluticasone propionate 50 mcg/actuation spray,suspension 2 spray intranasal DAILY Qty: 15.8 2RF Rx Instructions: administer into each nostril (DME) OneTouch Ultra Blue Test Strip Strip See Rx Instructions .ROUTE .MEDSUPPLY Rx Instructions: use to test once daily adapalene [Differin] 0.1 % gel 1 applic topical DAILY tretinoin 0.05 % cream 1 applic TOPICAL HS Rx Instructions: Apply to face. oseltamivir [Tamiflu] 75 mg capsule 75 mg PO BID 5 Days Qty: 10 0RF albuterol sulfate 90 mcg/actuation HFA aerosol inhaler 2 inha INH QID PRN (Reason: shortness of breath or wheezing) Qty: 1 0RF Discontinued methylprednisolone [Medrol (Roberto)] 4 mg tablets,dose pack 4 mg PO .COMPLEX Qty: 21 0RF Rx Instructions: 4 mg PO Use as per package instructions; prednisone 50 mg tablet 50 mg PO DAILY 5 Days Qty: 5 0RF Discharge Orders: Discharge Order (Routine); Ordered 08/03/22 Ordered By: Tae Suresh/Other Patient Handouts: The Flu (Influenza) Admission Data Admit Date/Time: 08/02/22 09:02 Attending Provider: Tae Lim Admit Provider: Jaime Hager Primary Care Provider: Felicia Kumar Other Providers: David Jurado Other Interventions: Discharge Summary Assessment (RN) Last Done: 08/03/22 12:23 Coding Level of Care Code 11529 OBS Care - Discharge Diagnoses Influenza A J10.1 Asthma exacerbation J45.901 Hypothyroidism E03.9 Chronic reflux esophagitis K21.0
== END 2022-08-03 14:24 | disposition home or self-care (01) ==
LOC: EDINP 06:43 → ED 06:43 → SUATTDRO 09:02 → 3E 12:05